=== PATIENT | female | born 1965 | race Caucasian/White ===

== ENCOUNTER 2023-11-16 13:46 | Outpatient (OUT) | payer MEDICARE, SELFPAY ==
--- NOTE | 2023-11-16 | CONS_ITS ---
CONSULTATION DATE: 11/16/2023 TO: Rosana Orourke M.D. CHIEF COMPLAINT: Includes severe left lower back pain, left hip pain. HISTORY OF PRESENT ILLNESS: Review of systems, past medical/surgical history were obtained and documented on the health questionnaire and is available upon request. She is a 58-year-old female, reports having 3-7/10 pain in the above mentioned areas, described as a sharp pain, increased with activities such as standing and walking and performing transitioning maneuvers. She feels most comfortable in the semi-recumbent position. Denies any change in bowel and bladder habits or new sensorimotor changes in the lower extremities. She has undergone activity modification and has been in a home exercise program for at least the last six weeks. She reports she has this pain again for at least the last one year. CURRENT MEDICATION: She has been using THC in the form of gummies. She has been Tylenol for her current pain symptoms, and she reports that she is intolerant to nonsteroidal agents. Her current KERRI is 32%. EXAM: Her examination is notable for patient having no clinical radiculopathy or myelopathy involving the lower extremities. Patient did have severe pain with lumbar facet joint loading maneuvers on the left side from L4-S1, with associated myofascial spasm of the lumbar paravertebral muscles as well. IMPRESSION: Our impression is patient with chronic pain secondary to lumbosacral spondylosis with facet loading pain clinically, on the left side at L4-5, L5-S1. RECOMMENDATIONS: I have recommended she start aquatic therapy. I have placed her on baclofen 10 mg pills, half to one b.i.d. Obtain lumbar spine films, PA and lateral views, and to proceed with a diagnostic left sided L4-5, L5-S1 medial branch block. As part of providing excellent, safe, comprehensive care, the following was completed at our patient's visit: 1. A medication reconciliation and review to ensure accurate knowledge of current/active medications, including asking our patients to inform us about any [id number] medications or herbal remedies/nutritional supplements/alternative remedies. 2. A review to specifically ensure our patients have had annual screening for: elevated body mass index (BMI, see intake chart for exact total), tobacco use, screening for depression, and screening for unhealthy alcohol use. When screening is concerning, patients are provided with education and the specific recommendation to discuss the concerning health issue and treatment options with their primary care provider. RAZAD
--- NOTE | 2023-11-16 15:11 | XR_ITS ---
The [address] [address] Patient Name: CLAUDIO REDD MRN: [id number] date: 1965 Sex: F Assigned Patient Location: PM Current Patient Location: Accession/Order Number: [id number] Exam Date: 11/16/2023 15:15 Report Date: 11/17/2023 07:12 At the request of: PARTHA BAY Procedure: XR lumbar spine 2-3V EXAMINATION: XR lumbar spine 2-3V HISTORY: low back pain COMPARISON: No relevant comparison available. 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 7 mm retrolisthesis of L4 in relation L5. Moderate to severe diffuse degenerative spondylosis and facet osteoarthropathy. DISC SPACES: Moderate to severe multilevel disc space narrowing. PARASPINOUS: Negative. No paraspinous abnormality is seen. OTHER: Negative. XR/XR lumbar spine 2-3V IMPRESSION: 7 mm retrolisthesis of L4. Severe degenerative changes with rotatory dextroscoliosis Electronically authenticated by: ODESSA IBARRA Date: 11/17/2023 07:12
== END 2023-11-16 13:47 | disposition home or self-care (01) ==
LOC: PM 13:47
PROVIDERS: PCP Family Medicine; Visit Provider Anesthesiology Pain Medicine
DX: M47.816 Spondylosis without myelopathy or radiculopathy, lumbar region (principal); M25.552 Pain in left hip; M51.36 Other intervertebral disc degeneration, lumbar region
CPT/HCPCS: 72100; G0463

== ENCOUNTER 2023-12-21 07:16 | Day surgery (SDC) | payer MEDICARE, SELFPAY ==
--- OUTSIDE RECORDS SUMMARY | 2023-12-21 07:19 | XMS_ITS | CCD ---
Author Organization [facility] Care Team Providers Care Stenographer Secretary Name Role Phone Rosana Orourke Unavailable ROSANA OROURKE Admitting Unavailable ROSANA OROURKE Attending Unavailable ROSANA OROURKE Primary Care Unavailable ROSANA OROURKE Consulting Unavailable ROSANA OROURKE Referring Unavailable ROSANA OROURKE Primary Care Unavailable ROSANA OROURKE Referring Unavailable ROSANA OROURKE Primary Care Unavailable Allergies Allergy Classification Reported Allergen(s) Allergy Type Date of Onset Reaction(s) Facility (6 sources) Morphine Drug Allergy Unknown Skoovy Other Medications Current Medications Medication Drug Class(es) Dates Sig (Normalized) Sig (Original) Ascorbic Acid (1 source) Vitamin C Start: 11-01-2023 take 1 tablet by mouth once daily Ascorbic Acid (Vitamin C) Active 1 TAB PO Daily November 01, 2023 12:00am FreeTextSi tablet Orally Once a day; Note: Source Status: Taking; Provider: Haven Wayne ( ) Cholecalciferol (1 source) Vitamin D Start: 11-01-2023 take 10 ug by mouth once daily Cholecalciferol (Vitamin D3) Active 10 MCG PO Daily November 01, 2023 12:00am Claritin-D 24 Hour 10-240 MG (6 sources) take 10-240 mg by mouth once daily as needed Claritin-D 24 Hour 10-240 MG 1 tablet as needed Orally Once a day for 30 days Active 24 hr loratadine 10 mg / pseudoephedrine sulfate 240 mg extended release oral tablet (1 source) alpha-Adrenergi c Agonist Start: 11-01-2023 take 1 tablet by mouth once daily Loratadine-Pseudoeph edrine Active 1 TAB PO Daily November 01, 2023 12:00am FreeTextSig: take 1 tablet by mouth once daily; Note: Source Status: Refill; Refills: 0; Qty: 30 Tablet; Provider: Haven Mann melatonin 1 mg oral tablet (7 sources) Start: 11-01-2023 take 1 mg by mouth once daily at bedtime Melatonin Active 1 MG PO Daily at bedtime November 01, 2023 12:00am Melatonin 1 MG 1 0mg. gummie Orally 2 at HS Active Tens Unit Electrodes (2 sources) Start: 11-02-2023 Tens Unit Elec trodes Active 0 .Route 1 November 02, 2023 2:24pm As directed Start: 11-02-2023 End: 11-02-2023 Tens Unit Electrodes Discont inued 0 .Route 1 November 02, 2023 12:00am November 02, 2023 2:25pm As directed Vitamin C 1000 MG (6 sources) take 1 tablet by mouth once daily Vitamin C 1000 MG 1 tablet Orally Once a day Active Vitamin D3 Complete - (6 sources) Vitamin D3 Compl ete - as directed Orally Active zinc gluconate 50 mg oral tablet (7 sources) Start: 11-01-2023 take 1 tablet by mouth once daily Zinc Gluconate Active 1 TAB PO Daily November 01, 2023 12:00am FreeTextSi tablet Orally Once a day; Note: Source Status: Taking; Provider: Haven Wayne ( ) take 1 tablet by molly th every twenty-four hours Zinc 50 MG 1 tablet Orally Once a day Active Completed/Discontinued Medications Medication Drug Class(es) Dates Sig (Normalized) Sig (Original) sertraline 25 mg oral tablet (3 sources) Serotonin Reuptake Inhibitor Start: 11-01-2023 End: 11-02-2023 take 1 tablet by mouth once daily Sertraline Discontinued 25 MG PO Daily November 01, 2023 12:00am November 02, 2023 1:50pm FreeTextSig: take 1 tablet by mouth once daily; Note: Source Status: Start; Refills: 3; Qty: 30 Tablet; Provider: Haven Wayne ( ) Start: 01-07-2023 take 1 tablet by molly th once daily Sertraline HCl 25 MG 1 tablet Orally Once a day for 30 days Dec, Active traZODone hydrochloride 50 mg oral tablet (3 sources) Serotonin Reuptake Inhibitor Start: 11-01-2023 End: 11-02-2023 take 1 tablet by mouth once daily at bedtime Trazodone Discontinued 50 MG PO Daily at bedtime November 01, 2023 12:00am November 02, 2023 1:50pm FreeTextSig: take 1 tablet by mouth at bedtime if needed; Note: Source Status: Refill; Refills: 2; Qty: 30 Tablet; Provider: Haven Mann Start: 01-07-2023 take 1 tablet by molly th every twenty-four hours traZODone HCl 50 MG 1 tablet at bedtime as needed Orally Once a day for 30 days Dec, Active Problems Problem Classification Problem Date Documented Da te Episodic/Chronic Anxiety disorders (3 sources) Anxiety; Translations: [Anxiety disorder, unspecified] Chronic Miscellaneous mental health disorders (3 sources) Primary insomnia; Translations: [Primary insomnia] Chronic Osteoarthritis (6 sources) Arthropathy of left hip joint; Translations: [Unilateral primary osteoarthritis, left hip] Chronic Other acquired deformities (6 sources) Scoliosis deformity of spine; Translations: [Scoliosis, unspecified] Chronic Other acquired deformities (6 sources) Acquired scoliosis; Translations: [Scoliosis, unspecified] Chronic Other bone disease and musculoskeletal deformities (6 sources) Idiopathic scoliosis AND/OR kyphoscoliosis; Translations: [Other idiopathic scoliosis, site unspecified] Chronic Other injuries and conditions due to external causes (1 source) Contusion; Translations: [Other injury of unspecified body region, initial encounter] 11-02-2023 Episodic Other injuries and conditions due to external causes (2 sources) Other injury of unspecified body region, initial encounter; Translations: [Contusion of unspecified site] Onset: 11-11-2023 11-02-2023 Episodic Other nervous system disorders (6 sources) Neuropathy; Translations: [Polyneuropathy, unspecified] Chronic Other non-traumatic joint disorders (6 sources) Arthralgia of the pelvic region and thigh; Translations: [Pain in left hip] Episodic Other screening for suspected conditions (not mental disorders or infectious disease) (5 sources) Encounter for screening mammogram for malignant neoplasm of breast; Translations: [Encounter for screening for malignant neoplasm of colon] Onset: 11-11-2023 Episodic Other upper respiratory disease (6 sources) Allergic rhinitis due to pollen; Translations: [Allergic rhinitis due to pollen] Chronic Other upper respiratory disease (1 source) Allergic rhinitis due to pollen Chronic Spondylosis; intervertebral disc disorders; other back problems (20 sources) Degeneration of lumbar intervertebral disc; Translations: [Other intervertebral disc degeneration, lumbar region] Chronic Spondylosis; intervertebral disc disorders; other back problems (10 sources) Low back pain; Translations: [Radiculopathy, lumbosacral region] 11-02-2023 Episodic Results Test Name Value Interpretation Reference Range Facil ity BASIC METABOLIC PANLon 11-10 Anion gap [Moles/Vol] 6 mmol/L Normal 5-15 [facility] Comment on above: Performed By: #### C BCA, BMP #### [facility] ([id number]) [address] [place] [address] Calcium [Mass/Vol] 9.7 mg/dL Normal 8.5-10.5 [facility] Comment on above: Performed By: #### C BCA, BMP #### [facility] ([id number]) [address], [facility] [address] [place] [address] Chloride [Moles/Vol] 102 mmol/L Normal 98-109 [facility] Comment on above: Performed By: #### C BCA, BMP #### [facility] ([id number]) [address] [place] [address] CO2 [Moles/Vol] 32 mmol/L Normal 22-32 [facility] Comment on above: Performed By: #### C BCA, BMP #### [facility] ([id number]) [address] [place] [address] Creatinine [Mass/Vol] 0.63 mg/dL Normal 0.40-1.00 [facility] Comment on above: Result Comment: METH OD TRACEABLE TO IDMS STANDARD Performed By: #### C BCA, BMP #### [facility] ([id number]) [address] [facility] [address] [place] [address] eGFR (CKD-EPI) NON-RACE DEPENDENT >90 Normal >59 [facility] Comment on above: Result Comment: Reported eGFR is based on the CKD-EPI 2020 equation that does not use a race coefficient. Performed By: #### C MIGUEL, BMP #### [facility] ([id number]) [address], [address] [place] [address] Glucose [Mass/Vol] 128 mg/dL High 65-99 [facility] Comment on above: Performed By: #### C MIGUEL, BMP #### [facility] ([id number]) [address], [address] [place] [address] Potassium [Moles/Vol] 4.3 mmol/L Normal 3.5-5.0 [facility] Comment on above: Performed By: #### C MIGUEL, BMP #### [facility] ([id number]) [address], [address] [place] [address] Sodium [Moles/Vol] 140 mmol/L Normal 134-146 [facility] Comment on above: Performed By: #### C MIGUEL, BMP #### [facility] ([id number]) [address], [address] [place] [address] Urea nitrogen [Mass/Vol] 9 mg/dL Normal 5-23 [facility] Comment on above: Performed By: #### C MIGUEL, BMP #### [facility] ([id number]) [address], [address] [place] [address] CBC AND AUTO DIFFon 11-11-19 24 ABSOLUTE BASOPHIL 0.1 X10E9/L Normal 0.0-0.2 [facility] Comment on above: Performed By: #### C BCA, BMP #### [facility] ([id number]) [address], [address] [place] [address] ABSOLUTE NEUTROPHIL 5.1 X10E9/L Normal 1.5-6.6 [facility] Comment on above: Performed By: #### C MIGUEL, BMP #### [facility] ([id number]) [address], [address] [place] [address] Basophils/100 WBC (Bld) 0.5 % Normal [facility] Comment on above: Performed By: #### C MIGUEL, BMP #### [facility] ([id number]) [address] [facility] [facility] [address] [place] [address] Eosinophils (Bld) [#/Vol] 0.3 10*3/uL Normal 0.0-0.4 [facility] Comment on above: Performed By: #### C MIGUEL, BMP #### [facility] ([id number]) [address] [place] [address] Eosinophils/100 WBC (Bld) 2.7 % Normal [facility] Comment on above: Performed By: #### C MIGUEL, BMP #### [facility] ([id number]) [address], [address] [place] [address] Erythrocyte distribution width (RBC) [Ratio] 13.7 % Normal 11.5-15.0 [facility] Comment on above: Performed By: #### C MIGUEL, BMP #### [facility] ([id number]) [address] [facility] [address] [place] [address] Hematocrit (Bld) [Volume fraction] 40.6 % Normal 35-47 [facility] Comment on above: Performed By: #### C MIGUEL, BMP #### [facility] ([id number]) [address] [facility] [facility] [place] [address] Hemoglobin (Bld) [Mass/Vol] 13.7 g/dL Normal 11.7-15.5 [facility] Comment on above: Performed By: #### C MIGUEL, BMP #### [facility] ([id number]) [address] [facility] [address] [place] [address] Lymphocytes (Bld) [#/Vol] 3.8 10*3/uL High 1.0-3.5 [facility] Comment on above: Performed By: #### C BCA, BMP #### [facility] ([id number]) [address] [place] [address] Lymphocytes/100 WBC (Bld) 37.9 % Normal [facility] Comment on above: Performed By: #### C BCA, BMP #### [facility] ([id number]) [address], [address] [place] [address] MCH (RBC) [Entitic mass] 31.1 pg Normal 27-34 [facility] Comment on above: Performed By: #### C BCA, BMP #### [facility] ([id number]) [address], [address] [place] [address] MCHC (RBC) [Mass/Vol] 33.6 g/dL Normal 32-36 [facility] Comment on above: Performed By: #### C BCA, BMP #### [facility] ([id number]) [address], [address] [place] [address] MCV (RBC) [Entitic vol] 93 fL Normal 80-100 [facility] Comment on above: Performed By: #### C BCA, BMP #### [facility] ([id number]) [address], [address] [place] [address] Monocytes (Bld) [#/Vol] 0.8 10*3/uL Normal 0-0.9 [facility] Comment on above: Performed By: #### C BCA, BMP #### [facility] ([id number]) [address], [address] [place] [address] Monocytes/100 WBC (Bld) 8.0 % Normal [facility] Comment on above: Performed By: #### C BCA, BMP #### [facility] ([id number]) [address], [address] [place] [address] Neutrophils/100 WBC (Bld) 50.9 % Normal [facility] Comment on above: Performed By: #### Irene RIVERA, BMP #### [facility] ([id number]) [address], [facility] [address] [place] [address] Platelet mean volume (Bld) [Entitic vol] 7.9 fL Normal 7-12 [facility] Comment on above: Performed By: #### Irene RIVERA, BMP #### [facility] ([id number]) [address], [facility] [address] [place] [address] Platelets (Bld) [#/Vol] 304 10*3/uL Normal 150-450 [facility] Comment on above: Performed By: #### Irene RIVERA, BMP #### [facility] ([id number]) [address], [facility] [address] [place] [address] RBC COUNT 4.39 X10E12/L Normal 3.80-5.20 [facility] Comment on above: Performed By: #### Irene RIVERA, BMP #### [facility] ([id number]) [address], [address] [address] WBC (Bld) [#/Vol] 10.0 10*3/uL Normal 4.0-11.0 [facility] Comment on above: Performed By: #### Irene RIVERA, BMP #### [facility] ([id number]) [address], [address] [place] [address] MAMM SCREENING BILATERAL W C student support services director 11-11-2023 MAMM SCREENING BILATERAL W CAD MAMM SCREENING BILATERAL W CAD EXAM: MAMM SCREENING BILATERAL W CAD, 11/11/2023 11:12 AM CLINICAL INDICATIONS: Screening, Visit for screening mammogram COMPARISON: 10/23/2022 and priors TECHNIQUE: Bilateral digital tomosynthesis MLO and CC views of the breasts were obtained, with creation of synthetic 2D views. Computer aided detection was utilized. FINDINGS: There are scattered areas of fibroglandular density. There are no suspicious masses, calcifications, or areas of architectural distortions. IMPRESSION: No mammographic evidence of malignancy. BI-RADS: BI-RADS 1 - Negative Recommendation: Routine screening mammogram in 1 year. Finalized by Jordan Lam MD on 11/11/2023 11:54 AM 1 b MAMM 1 YR Normal [facility] CBC AUTO DIFFon 10-23-2022 BASO # 0.0 103/ul Normal 0.0-0.1 [facility] Comment on above: Performed By: #### C BC #### [facility] [address] [address] [address] Jo Ann Rene Basophils/100 WBC (Bld) 0.4 % Normal 0.2-2.0 [facility] Comment on above: Performed By: #### C BC #### [facility] [address] [address] [address] Jo Ann Rene EO # 0.4 103/ul Normal 0.0-0.7 [facility] Comment on above: Performed By: #### C BC #### [facility] [address] [address] [address] Jo Ann Rene Eosinophils/100 WBC (Bld) 4.7 % Normal 0.9-7.0 [facility] Comment on above: Performed By: #### C BC #### [facility] [address] [address] [address] Jo Ann Rene Erythrocyte distribution width (RBC) [Ratio] 12.8 % Normal 11.0-15.0 [facility] Comment on above: Performed By: #### C BC #### [facility] [address] [address] [address] Jo Ann Rene Hematocrit (Bld) [Volume fraction] 42.6 % Normal 36.0-48.0 [facility] Comment on above: Performed By: #### C BC #### [facility] [address] [address] [address] Jo Ann Rene Hemoglobin (Bld) [Mass/Vol] 14.5 g/dL Normal 12.0-16.0 [facility] Comment on above: Performed By: #### C BC #### [facility] [address] [place] [address] Dr. Jo Ann Rene IG # 0.03 10e3/ul Normal 0.00-0.03 [facility] Comment on above: Performed By: #### C BC #### [facility] [address] [place] [address] Dr. Jo Ann Rene IG % 0.3 % Normal 0.0-0.5 [facility] Comment on above: Performed By: #### C BC #### [facility] [address] [place] [address] Dr. Jo Ann Rene LYMPH # 3.1 103/ul Normal 1.2-3.8 [facility] Comment on above: Performed By: #### C BC #### [facility] [address] [place] [address] Dr. Jo Ann Rene Lymphocytes/100 WBC (Bld) 34.1 % Normal 20.5-60.0 [facility] Comment on above: Performed By: #### C BC #### [facility] [address] [place] [address] Dr. Jo Ann Rene MANUAL DIFF REQ NO Normal [facility] Comment on above: Performed By: #### C BC #### [facility] [address] [place] [address] Dr. Jo Ann Rene MCH (RBC) [Entitic mass] 30.9 pg Normal 26.7-34.0 [facility] Comment on above: Performed By: #### C BC #### [facility] [address] [place] [address] Dr. Jo Ann Rene MCHC (RBC) [Mass/Vol] 34.0 g/dL Normal 29.9-35.2 [facility] Comment on above: Performed By: #### C BC #### [facility] [address] [place] [address] Dr. Jo Ann Rene MCV (RBC) [Entitic vol] 90.6 fL Normal 81.0-99.0 [facility] Comment on above: Performed By: #### C BC #### [facility] [address] [place] [address] Dr. Jo Ann Rene MONO # 0.8 103/ul Normal 0.3-0.8 [facility] Comment on above: Performed By: #### C BC #### [facility] [address] [place] [address] Dr. Jo Ann Rene Monocytes/100 WBC (Bld) 8.6 % Normal 1.7-12.0 [facility] Comment on above: Performed By: #### C BC #### [facility] [address] [place] [address] Dr. Jo Ann Rene NEUT # 4.7 103/ul Normal 1.4-6.5 [facility] Comment on above: Performed By: #### C BC #### [facility] [address] [place] [address] Dr. Jo Ann Rene Neutrophils/100 WBC (Bld) 51.9 % Normal 43.0-75.0 [facility] Comment on above: Performed By: #### C BC #### [facility] [address] [place] [address] Dr. Jo Ann Rene Platelet mean volume (Bld) [Entitic vol] 9.8 fL Normal 9.5-13.5 [facility] Comment on above: Performed By: #### C BC #### [facility] [address] [place] [address] Dr. Jo Ann Rene PLT 303 103/ul Normal 150-450 [facility] Comment on above: Performed By: #### C BC #### [facility] [address] [place] [address] Dr. Jo Ann Rene RBC 4.70 106/ul Normal 4.20-5.40 [facility] Comment on above: Performed By: #### C BC #### [facility] [address] [place] [address] Dr. Jo Ann Rene WBC 9.1 103/ul Normal 4.0-11.0 [facility] Comment on above: Performed By: #### C BC #### [facility] [address] [place] [address] Dr. Jo Ann Rene LIPID PROFILEon 10-23-2022 CHOL-HDL RATIO NORM SEE BELOW Normal [facility] Comment on above: Result Comment: 3.3 - 4.4 LOW RISK 4.4 - 7.1 AVERAGE RISK 7.1 - 11.0 MODERATE RISK >11.0 HIGH RISK Performed By: #### L IPID, BMP #### [facility] [address] [address] [address] Jo Ann Rene Cholesterol [Mass/Vol] 174 mg/dL Normal <=200 [facility] Comment on above: Performed By: #### L IPID, BMP #### [facility] [address] [address] [address] Jo Ann Rene Cholesterol in HDL [Mass/Vol] 57 mg/dL Normal 40-60 [facility] Comment on above: Performed By: #### L IPID, BMP #### [facility] [address] [address] [address] Jo Ann Rene Cholesterol in LDL [Mass/Vol] 109.2 mg/dL Normal [facility] Comment on above: Performed By: #### L IPID, BMP #### [facility] [address] [address] [address] Jo Ann Rene Cholesterol.total/C holesterol in HDL [Mass ratio] 3.1 {ratio} Normal [facility] Comment on above: Performed By: #### L IPID, BMP #### [facility] [address] [address] [address] Jo Ann Rene HDL NORMAL > or = 60 mg/dl - LOW CARDIOVASCULAR RISK <40 mg/dl - HIGH CARDIOVASCULAR RISK Normal [facility] Comment on above: Performed By: #### L IPID, BMP #### [facility] [address] [address] [address] Jo Ann Rene LDL CALC NORMAL SEE BELOW Normal [facility] Comment on above: Result Comment: <100 mg/dl OPTIMAL 100 - 129 mg/dl NEAR OR ABOVE OPTIMAL 130 - 159 mg/dl BORDERLINE HIGH 160 - 189 mg/dl HIGH >190 mg/dl VERY HIGH Performed By: #### L IPID, BMP #### [facility] [address] [address] [address] Jo Ann Rene Triglyceride [Mass/Vol] 39 mg/dL Normal <=150 [facility] Comment on above: Performed By: #### L IPID, BMP #### [facility] [address] [place] [address] Dr. Jo Ann Rene VLDL CALC 7.8 mg/dL Normal [facility] Comment on above: Performed By: #### L IPID, BMP #### [facility] [address] [place] [address] Dr. Jo Ann Rene PROF CHEM 8 (BAS METB)on Anion gap [Moles/Vol] 10.4 mmol/L Normal [facility] Comment on above: Performed By: #### L IPID, BMP #### [facility] [address] [place] [address] Dr. Jo Ann Rene Calcium [Mass/Vol] 9.7 mg/dL Normal 8.5-10.1 [facility] Comment on above: Performed By: #### L IPID, BMP #### [facility] [address] [place] [address] Dr. Jo Ann Rene Chloride [Moles/Vol] 104 mmol/L Normal 98-107 [facility] Comment on above: Performed By: #### L IPID, BMP #### [facility] [address] [place] [address] Dr. Jo Ann Rene CO2 [Moles/Vol] 31.1 mmol/L Normal 21.0-32.0 [facility] Comment on above: Performed By: #### L IPID, BMP #### [facility] [address] [place] [address] Dr. Jo Ann Rene Creatinine [Mass/Vol] 0.74 mg/dL Normal 0.55-1.02 [facility] Comment on above: Performed By: #### L IPID, BMP #### [facility] [address] [place] [address] Dr. Jo Ann Rene EGFR-AF BURUNDIAN >60 Normal >=60 [facility] Comment on above: Performed By: #### L IPID, BMP #### [facility] [address] [place] [address] Dr. Jo Ann Rene EGFR-NON AF B[place]UNDIAN >60 Normal >=60 [facility] Comment on above: Performed By: #### L IPID, BMP #### [facility] [address] [address] [address] Jo Ann Rene Glucose [Mass/Vol] 119 mg/dL Critically high 74-106 [facility] Comment on above: Performed By: #### L IPID, BMP #### [facility] [address] [address] [address] Jo Ann Rene Potassium [Moles/Vol] 4.5 mmol/L Normal 3.5-5.1 [facility] Comment on above: Performed By: #### L IPID, BMP #### [facility] [address] [place] [address] Dr. Jo Ann Rene Sodium [Moles/Vol] 141 mmol/L Normal 136-145 [facility] Comment on above: Performed By: #### L IPID, BMP #### [facility] [address] [address] [address] Jo Ann Rene Urea nitrogen [Mass/Vol] 7.0 mg/dL Normal 7.0-18.0 [facility] Comment on above: Performed By: #### L IPID, BMP #### [facility] [address] [place] [address] Dr. Jo Ann Rene Urea nitrogen/Creatinine [Mass ratio] 9.5 mg/mg Normal [facility] Comment on above: Performed By: #### L IPID, BMP #### [facility] [address] [place] [address] Dr. Jo Ann Rene Vital Signs Date Time Vital Sign Value Performing Clinician Facility 11-02-2023 13:42040 Body height 165.1 cm [facility] 11-02-2023 13:420400 Body mass index (BMI) [Ratio] 22.3 kg/m2 [facility] 11-02-2023 13:420400 Body weight 60.83 kg [facility] 11-02-2023 13:42-0400 Diastolic blood pressure 89 mm[Hg] [facility] 11-02-2023 13:42-0400 Heart rate 84 /min [facility] 11-02-2023 13:42-0400 Systolic blood pressure 143 mm[Hg] [facility] 01-07-2023 10:45-0400 Body height 165.1 cm Rosana Orourke Other [facility] 01-07-2023 10:45-0400 Body mass index (BMI) [Ratio] 21.96 kg/m2 Rosana Orourke Other [facility] 01-07-2023 10:45-0400 Body weight 59.88 kg Rosana Orourke Other [facility] 01-07-2023 10:45-0400 Diastolic blood pressure 74 mm[Hg] Rosana Orourke Other [facility] 01-07-2023 10:45-0400 SaO2% (BldA) [Mass fraction] 97 % Rosana Orourke Other [facility] 01-07-2023 10:45-0400 Systolic blood pressure 118 mm[Hg] Rosana Orourke Other [facility] 10-19-2022 12:30-0400 Body height 165.1 cm Rosana Orourke Other [facility] 10-19-2022 12:30-0400 Body mass index (BMI) [Ratio] 24.46 kg/m2 Rosana Orourke Other [facility] 10-19-2022 12:30-0400 Body weight 66.68 kg Rosana Orourke Other [facility] Other 10-19-2022 12:30-0400 Diastolic blood pressure 80 mm[Hg] Rosana Orourke Other [facility] Other 10-19-2022 12:30-0400 SaO2% (BldA) [Mass fraction] 97 % Rosana Orourke Other [facility] Other 10-19-2022 12:30-0400 Systolic blood pressure 132 mm[Hg] Rosana Orourke Other [facility] Other Encounters Encounter Date Encounter Type Care Provider Facility Start: 11-11-2023 End: 11-12-2023 ambulatory ROSANA OROURKE [facility] Start: 11-02-2023 Patient encounter status [facility] Start: 11-02-2023 End: 11-02-[address] [facility] Work Phone: Start: 11-02-2023 End: 11-02-2023 Encounter for general adult medical examination without abnormal findings [facility] Start: 11-02-2023 End: 11-02-2023 Patient encounter procedure [facility] Work Phone: Start: 02-04-2023 End: 02-04-2023 ambulatory Rosana Orourke Other [facility] Other Start: 02-04-2023 Telephone encounter Rosana Orourke [facility] Start: 01-07-2023 End: 01-07-2023 ambulatory Rosana Orourke Other [facility] Other Start: 01-07-2023 Office outpatient vi sit 15 minutes Rosana Orourke [facility] Start: 11-02-2022 End: 11-02-2022 ambulatory Rosana Orourke Other [facility] Other Start: 11-02-2022 Telephone encounter Rosana Orourke [facility] Start: 11-01-2022 Encounter for genera l adult medical examination without abnormal findings ROSANA OROURKE [facility] Start: 10-26-2022 End: 10-26-2022 ambulatory Rosana Orourke Other [facility] Other Start: 10-26-2022 Telephone encounter Rosana Haven [facility] Start: 10-23-2022 Telephone encounter Rosana Orourke [facility] Start: 10-23-2022 End: 10-24-2022 ambulatory ROSANA Mackenzie [facility] Other Start: 10-23-2022 End: 10-24-2022 Encounter for general adult medical examination without abnormal findings ROSANA Mann [facility] Facility:[facility] Start: 10-19-2022 End: 10-19-2022 ambulatory Rosana Orourke Other [facility] Other Start: 10-19-2022 Encounter for genera l adult medical examination without abnormal findings Rosana Haven [facility] Start: 10-19-2022 Initial preventive medicine new patient 40-64yrs Rosana Haven [facility] Plan of Treatment Date Care Activity Detail Author Start: 11-02-2023 Patient referral [facility] Work Phone: MG Breast - bilatera l Screening [facility] Patient referral [facility] Work Phone: [facility] Payers Date Payer Category Payer Unknown [id number] 1965 Unknown [id number] 1965 Unknown [id number] 1961 Medicare [id number] Medicare [id number] Social History Date Type Detail Facility Unknown if ever smoked [facility] Other Sex Assigned At Sex Assigned At Bir [facility] Other Start: 11-02-2023 Tobacco smoking status NHIS Smoker (finding) [facility] Start: 1965 Sex Assigned At Female F [facility] Discharge instructions 11-02-2023 Note Date & Type Note Facility 11-02-2023 Hospital Discharg e instructions Ambulatory OrdersReferral to Pain Management Time Frame: 11/02/23, Location: None Selected [facility] Work Phone: Evaluation note 01-07-2023 Note Date & Type Note Facility 01-07-2023 Evaluation note Encounter Date Diagnosis Assessment Notes Dec, Anxiety (ICD-10 - F41.9) Recommended counseling when able. Right now her schedule is difficult. Call if medication does not help. Dec, Primary insomnia (ICD-10 - F51.01) Discussed stressors. Problems with constant worrying with husbands serious medical issues. [facility] Other Evaluation note 10-19-2022 Note Date & Type Note Facility 10-19-2022 Evaluation note Encounter Date Diagnosis Assessment Notes Oct, Wellness examination (ICD-10 - Z00.00) Also gave the SHARON form Oct, Seasonal allergic rhinitis due to pollen (ICD-10 - J30.1) Pt states symptoms are controlled on Claritin. Had testing 10+ years ago and did serum treatment for 2 years. Oct, Screening mammogram for breast cancer (ICD-10 - Z12.31) Pt will call to schedule. Oct, Screening for colon cancer (ICD-10 - Z12.11) agrees to Colog[facility]. Last was in 2019. [facility] Other Evaluation note Note Date & Type Note Facility Evaluation note No Information [employer] Other Evaluation note Note Date & Type Note Facility Evaluation note Diagnosis Onset Date Bruising acute Right lumbar radiculopathy a cute Right sciatic nerve pain acu te Screening mammogram for breast cancer acute Wellness examination acute [facility] Work Phone: History general Narrative - Reported Note Date & Type Note Facility History general Narrative - Reported Type Medical History none at this time Medical History Scoliosis Medical History Disc displacement, lumbar Medical History Degenerative disc disease, lumba r Medical History Arthropathy of left hip Medical History Lumbar back pain wit h radiculopathy affecting left lower extremity Medical History Scoliosis (and kypho scoliosis), idiopathic Medical History Inflammation of both sacroiliac joints Medical History Neuropathy Surgical History Hysterectomy 1998 Surgical History tubal 1986 Hospitalization History See Sx Hx [facility] Other Summary Purpose Family History No Family History Records Found Relationship Condition Age at Onset Recorded Date/T adal father Heart disease Unknown Unknown Not Specified Hypertension Unknown Advance Directives No Advanced Directives Records Found Advance Directive Response Recorded Date/ Time Advance Directives No October 25 10:44am Chief Complaint and Reason for Visit Chief Complaint wellness Reason for Visit Bruising Right lumbar radiculopathy Right sciatic nerve pain Screening mammogram for breast cancer Wellness examination Additional Source Comments REASON FOR VISIT (unrecogniz ed section and content) wellnesslabsdiagnosis codesc ologuard negANXIETY TROUBLE EATING AND SLEEPINGrefill INFORMATION SOURCE (unrecogn ized section and content) DATE CREATED AUTHOR 11/01/2022 [facility] DATE CREATED AUTHOR AUTHOR'S ORGANIZ ATION 11/12/2023 [facility] Care Teams (unrecognized sec tion and content) Team Status: Active Member Role Status Dates Rosana Orourke MD Primary Care Provider Active Team Status: Inactive Member Role Status Dates Rosana Orourke MD Primary Care Provide r, Attending Provider Active Start: November 02, 2023 End: November 02, 2023 Goals (unrecognized section and content) Goals may be documented in a n alternate section FOR RECORDS PERTAINING TO PATIENTS WHO ARE OR HAVE BEEN ENROLLED IN A CHEMICAL DEPENDENCY/SUBSTANCEABUSE PROGRAM, SOME INFORMATION MAY BE OMITTED. This clinical summary was aggregated from multiple sources. Caution should be exercised in using it in the provision of clinical care. This summary normalizes information from multiple sources, and as a consequence, information in this document may materially change the coding, format and clinical context of patient data. In addition, data may be omitted in some cases. CLINICAL DECISIONS SHOULD BE BASED ON THE PRIMARY CLINICAL RECORDS. [employer] provides no warranty or guarantee of the accuracy or completeness of information in this document.
[2023-12-21 07:40] VITALS: BP 120/77; PULSE 88; TEMP 36.2; O2SAT 97
[2023-12-21] MEDS: BUPIVACAINE HCL 0.25% PF 25 MG/10 ML VIAL 4 ML INJ (08:31)
[2023-12-21 08:33] VITALS: BP 129/80; BP 133/80; PULSE 84; PULSE 86; O2SAT 96; O2SAT 98
--- NOTE | 2023-12-21 09:57 | W.PM.PROCNOT ---
Date of procedure: 12/21/23 Pre-op diagnosis: lumbar spondylosis Post-op diagnosis: same as pre-op Procedure: Left lumbar 4-5, 5-S1 medial branch block Under fluoroscopic guidance Solution injected: 2millilitersMarcaine 0.25% Anesthesia :none Immediate complications none Time out process compliant After informed consent obtained from the patient placed in the Prone proposition . area was prepped and draped in a sterile fashion using Cloraprep .25 gauge spinal needle inserted over each of the above mentioned target areas . [place] were directed towards the target under fluoroscopic guidance . after encountering each of the targets , no indication of intravascular intraneuronal or intrathecal needle tip placement. Then 0 .5 to 1 Milliliter was injected at each level. [place] removed postoperatively. patient transferred to recovery in stable condition to be discharged home after meeting criteria Anesthesia: Local Surgeon: Leigh Ann Montanez Condition: stable Disposition: PACU
== END 2023-12-21 08:38 | disposition home or self-care (01) ==
PROVIDERS: PCP Family Medicine; Visit Provider Anesthesiology Pain Medicine
DX: M47.816 Spondylosis without myelopathy or radiculopathy, lumbar region (principal)
CPT/HCPCS: 64493; 64494

== ENCOUNTER 2023-12-29 13:35 | Outpatient (OUT) | payer MEDICARE, SELFPAY ==
--- NOTE | 2023-12-29 14:02 | P.CN_ITS ---
Consult Note: HPI Data of Consult Patient: known to practice within the last 3 years Requesting Physician: Trena Ortega NP Primary Care Provider: Rosana Orourke MD Consult Narrative Narrative: Vida Dee a pleasant 58 year old female presents for evaluation and management of chronic low back pain. Patient has had chronic low back pain secondary to facet arthropathy present greater than 6 months, unresponsive to HEP greater than 6 weeks tylenol baclofen and THC gummies. Patient recently underwent left L4/5 L5/S1 facet medial branch block #1 with >80% improvement in left sided axial low back pain immediately following and hours after the injection. Patient reporting low back pain moderate to severe bilaterally, would like to discuss right sided low back pain. Pain today 4/10 increasing to 10/10 with standing and walking, as well as twisting. cc:: CC: Trena Ortega NP Review of Systems ROS Status of ROS 10 or more systems reviewed and unremark able except as noted in history and below Musculoskeletal Reports: back pain PFSH PFSH Medical History (Updated 12/29/23 @ 14:12 by Trena Ortega NP) Osteoarthritis ?M19.90 - Unspecified osteoarthritis, unspecified site (ICD-10) Surgical History History of tubal ligation ?Z98.51 - Tubal ligation status (ICD-10) History of hysterectomy ?Z90.710 - Acquired absence of both cervix and uterus (ICD-10) Meds Home Medications and Allergies Home Medications ?Medication ?Instructions ?Recorded ?Confirmed ?Type baclofen 10 mg tablet 10 mg PO BID 11/18/23 12/21/23 History cholecalciferol (vitamin D3) 125 125 mcg PO DAILY 11/18/23 12/21/23 History mcg (5,000 unit) tablet (Vitamin D3) diphenhydramine HCl 25 mg capsule 25 mg PO Q8H PRN allergy symptoms 11/18/23 12/21/23 History (Benadryl) loratadine-pseudoephedrine ER 10 1 tab PO DAILY 11/18/23 12/21/23 History mg-240 mg tablet,extended [id number] (Claritin-D 24 Hour) melatonin 10 mg capsule 10 mg PO DAILY 11/18/23 12/21/23 History Allergies Allergy/AdvReac Type Severity Reaction Status Date / Time No Known Drug Allergies Allergy Verified 12/21/23 07:41 Exam Constitutional Documenting provider has reviewed patient's vital signs: yes Common normals: no apparent distress, oriented x3, healthy appearing, alert and well nourished General appearance: cooperative HENMT Common normals: normocephalic, hearing grossly normal bilaterally and moist oral mucous membranes Head and scalp: normocephalic Eye Common normals: PERRL Pupil: PERRL Neck & C-Spine Common normals: full ROM General: normal visual inspection Chest Common normals: inspection of chest normal Respiratory Common normals: normal respiratory effort, no retractions and no use of accessory muscles Back & Pelvis Lumbar spine/lower back: ROM limited, pain with ROM and straight leg raise negative bilaterally Sacroiliac joints: SI joints normal Other: bilateral facet loading tenderness from L3-S1 facets no radiculopathy, sensation intact BLE, strength 5/5 in BLE Extremity Common normals: normal to inspection and full ROM Neuro Common normals: oriented x3, CN's II-XII intact bilaterally, moves all extremities, no focal motor deficits, no sensory deficits noted and deep tendon reflexes 2+ bilaterally Sensorium/orientation: alert Motor exam: strength 5/5 throughout and no movement abnormalities noted Psych Common normals: mental status grossly normal, thought process normal, cooperative, affect normal, speech normal and activity/motor behavior normal Speech: normal speech Thought process: normal thought process Results Additional Findings Additional findings: If on a controlled substance or opioids, I have checked an [place] report on this patient and there are no aberrancies noted in the prescribing history.??If on a controlled substance or opioid a drug screen was completed and reviewed within the last year, and if there has not been a drug screen completed we ordered one today to monitor higher risk, state monitored pain medication use. As part of providing excellent, safe, comprehensive care, the following was completed at our patient's visit: 1. A medication reconciliation and review to ensure accurate knowledge of current/active medications, including asking our patients to inform us about any [id number] medications or herbal remedies/nutritional supplements/alternative remedies. 2. A review to specifically ensure our patients have had annual screening for screening for depression, screening for tobacco use, and screening for unhealthy alcohol use. For concerning screenings had a discussion with the patient, provided patient education, and recommended follow-up with primary care provider when appropriate. If patient noted with a risk of falling, they received education on strength, gait, and balance training to prevent future risk of falling. Assessment and Plan Assessment and Plan (1) Lumbar spondylosis: Plan Right L4-5 L5-S1 facet medial branch block under fluoroscopy, f/u after injection plan for bilateral L4-5 L5-S1 MBB #2 working towards RFA if above listed procedure provides >80% improvement in pain and functional ability continue current medications
== END 2023-12-29 13:36 | disposition home or self-care (01) ==
LOC: PM 13:36
PROVIDERS: PCP Family Medicine; Visit Provider Nurse Practitioner
DX: M47.816 Spondylosis without myelopathy or radiculopathy, lumbar region (principal)
CPT/HCPCS: G0463

== ENCOUNTER 2024-02-01 06:39 | Day surgery (SDC) | payer MEDICARE, SELFPAY ==
--- OUTSIDE RECORDS SUMMARY | 2024-02-01 06:41 | XMS_ITS | CCD ---
Author Organization [facility] Care Team Providers Care Cognos Administrator Name Role Phone Rosana Orourke Unavailable ROSANA OROURKE Admitting Unavailable ROSANA OROURKE Attending Unavailable ROSANA OROURKE Primary Care Unavailable ROSANA OROURKE Consulting Unavailable ROSANA OROURKE Referring Unavailable ROSANA OROURKE Primary Care Unavailable ROSANA OROURKE Referring Unavailable ROSANA OROURKE Primary Care Unavailable Allergies Allergy Classification Reported Allergen(s) Allergy Type Date of Onset Reaction(s) Facility (6 sources) Morphine Drug Allergy Unknown [facility] Other Medications Current Medications Medication Drug Class(es) [...] Mann Start: 01-07-2023 take 1 tablet by molyl th every twenty-four hours traZODone HCl 50 [...] Anion gap [Moles/Vol] 6 mmol/L Normal 5-15 [facility] Comment on above: Performed By: #### C BCA, BMP #### [facility] ([id number]) [address] [place] [address] Calcium [Mass/Vol] 9.7 mg/dL Normal 8.5-10.5 [facility] Comment on above: Performed By: #### C BCA, BMP #### [facility] ([id number]) [address] [facility] [address] [place] [address] Chloride [Moles/Vol] 102 mmol/L Normal 98-109 [facility] Comment on above: Performed By: #### C BCA, BMP #### [facility] ([id number]) [address] [place] [address] CO2 [Moles/Vol] 32 mmol/L Normal 22-32 [facility] Comment on above: Performed By: #### C BCA, BMP #### [facility] ([id number]) [address] [place] [address] Creatinine [Mass/Vol] 0.63 mg/dL Normal 0.40-1.00 [facility] Comment on above: Result Comment: METH OD TRACEABLE TO IDMS STANDARD Performed By: #### C BCA, BMP #### [facility] ([id number]) [address] [facility] [facility] [place] [address] eGFR (CKD-EPI) NON-RACE DEPENDENT >90 Normal >59 [facility] Comment on above: Result Comment: Reported eGFR is based on the CKD-EPI 2020 equation that does not use a race coefficient. Performed By: #### C MIGUEL, BMP #### [facility] ([id number]) [address] [place] [address] Glucose [Mass/Vol] 128 mg/dL High 65-99 [facility] Comment on above: Performed By: #### C MIGUEL, BMP #### [facility] ([id number]) [address] [address] [place] [address] Potassium [Moles/Vol] 4.3 mmol/L Normal 3.5-5.0 [facility] Comment on above: Performed By: #### C MIGUEL, BMP #### [facility] ([id number]) [address] [place] [address] Sodium [Moles/Vol] 140 mmol/L Normal 134-146 [facility] Comment on above: Performed By: #### C MIGUEL, BMP #### [facility] ([id number]) [address] [place] [address] Urea nitrogen [Mass/Vol] 9 mg/dL Normal 5-23 [facility] Comment on above: Performed By: #### C MIGUEL, BMP #### [facility] ([id number]) [address] [address] [place] [address] CBC AND AUTO DIFFon 11-11-19 24 ABSOLUTE BASOPHIL 0.1 X10E9/L Normal 0.0-0.2 [facility] Comment on above: Performed By: #### C BCA, BMP #### [facility] ([id number]) [address] [place] [address] ABSOLUTE NEUTROPHIL 5.1 X10E9/L Normal 1.5-6.6 [facility] Comment on above: Performed By: #### C MIGUEL, BMP #### [facility] ([id number]) [address] [place] [address] Basophils/100 WBC (Bld) 0.5 % Normal [facility] Comment on above: Performed By: #### C MIGUEL, BMP #### [facility] ([id number]) [address] [place] [address] Eosinophils (Bld) [#/Vol] 0.3 10*3/uL Normal 0.0-0.4 [facility] Comment on above: Performed By: #### C MIGUEL, BMP #### [facility] ([id number]) [address] [address] [place] [address] Eosinophils/100 WBC (Bld) 2.7 % Normal [facility] Comment on above: Performed By: #### C MIGUEL, BMP #### [facility] ([id number]) [address] [place] [address] Erythrocyte distribution width (RBC) [Ratio] 13.7 % Normal 11.5-15.0 [facility] Comment on above: Performed By: #### C MIGUEL, BMP #### [facility] ([id number]) [address] [address] [place] [address] Hematocrit (Bld) [Volume fraction] 40.6 % Normal 35-47 [facility] Comment on above: Performed By: #### C MIGUEL, BMP #### [facility] ([id number]) [address] [address] [place] [address] Hemoglobin (Bld) [Mass/Vol] 13.7 g/dL Normal 11.7-15.5 [facility] Comment on above: Performed By: #### C BCA, BMP #### [facility] ([id number]) [address] [place] [address] Lymphocytes (Bld) [#/Vol] 3.8 10*3/uL High 1.0-3.5 [facility] Comment on above: Performed By: #### C BCA, BMP #### [facility] ([id number]) [address] [place] [address] Lymphocytes/100 WBC (Bld) 37.9 % Normal [facility] Comment on above: Performed By: #### C BCA, BMP #### [facility] ([id number]) [address] [place] [address] MCH (RBC) [Entitic mass] 31.1 pg Normal 27-34 [facility] Comment on above: Performed By: #### C MIGUEL, BMP #### [facility] ([id number]) [address] [place] [address] MCHC (RBC) [Mass/Vol] 33.6 g/dL Normal 32-36 [facility] Comment on above: Performed By: #### C BCA, BMP #### [facility] ([id number]) [address] [place] [address] MCV (RBC) [Entitic vol] 93 fL Normal 80-100 [facility] Comment on above: Performed By: #### C BCA, BMP #### [facility] ([id number]) [address] [place] [address] Monocytes (Bld) [#/Vol] 0.8 10*3/uL Normal 0-0.9 [facility] Comment on above: Performed By: #### C BCA, BMP #### [facility] ([id number]) [address] [place] [address] Monocytes/100 WBC (Bld) 8.0 % Normal [facility] Comment on above: Performed By: #### C BCA, BMP #### [facility] ([id number]) [address] [place] [address] Neutrophils/100 WBC (Bld) 50.9 % Normal [facility] Comment on above: Performed By: #### Irene RIVERA, BMP #### [facility] ([id number]) [address] [facility] [address] [place] [address] Platelet mean volume (Bld) [Entitic vol] 7.9 fL Normal 7-12 [facility] Comment on above: Performed By: #### Irene RIVERA, BMP #### [facility] ([id number]) [address] [facility] [address] [place] [address] Platelets (Bld) [#/Vol] 304 10*3/uL Normal 150-450 [facility] Comment on above: Performed By: #### Irene RIVERA, BMP #### [facility] ([id number]) [address] [facility] [address] [place] [address] RBC COUNT 4.39 X10E12/L Normal 3.80-5.20 [facility] Comment on above: Performed By: #### Irene RIVERA, BMP #### [facility] ([id number]) [address] [address] WBC (Bld) [#/Vol] 10.0 10*3/uL Normal 4.0-11.0 [facility] Comment on above: Performed By: #### Irene RIVERA, BMP #### [facility] ([id number]) [address] [place] [address] MAMM SCREENING BILATERAL W C advice line rn 11-11-2023 MAMM SCREENING BILATERAL W CAD MAMM [...] AM 1 b MAMM 1 YR Normal [facility] CBC AUTO DIFFon 10-23-2022 BASO # 0.0 103/ul Normal 0.0-0.1 [facility] Comment on above: Performed By: #### C BC #### [facility] [address] [place] [address] Dr. Jo Ann Rene Basophils/100 WBC (Bld) 0.4 % Normal 0.2-2.0 [facility] Comment on above: Performed By: #### C BC #### [facility] [address] [place] [address] Dr. Jo Ann Rene EO # 0.4 103/ul Normal 0.0-0.7 [facility] Comment on above: Performed By: #### C BC #### [facility] [address] [place] [address] Dr. Jo Ann Rene Eosinophils/100 WBC (Bld) 4.7 % Normal 0.9-7.0 [facility] Comment on above: Performed By: #### C BC #### [facility] [address] [place] [address] Dr. Jo Ann Rene Erythrocyte distribution width (RBC) [Ratio] 12.8 % Normal 11.0-15.0 [facility] Comment on above: Performed By: #### C BC #### [facility] [address] [place] [address] Dr. Jo Ann Rene Hematocrit (Bld) [Volume fraction] 42.6 % Normal 36.0-48.0 [facility] Comment on above: Performed By: #### C BC #### [facility] [address] [place] [address] Dr. Jo Ann Rene Hemoglobin (Bld) [Mass/Vol] 14.5 g/dL Normal 12.0-16.0 [facility] Comment on above: Performed By: #### C BC #### [facility] [address] [place] [address] Dr. Jo Ann Rene IG # 0.03 10e3/ul Normal 0.00-0.03 [facility] Comment on above: Performed By: #### C BC #### [facility] [address] [place] [address] Dr. Jo Ann Rene IG % 0.3 % Normal 0.0-0.5 [facility] Comment on above: Performed By: #### C BC #### [facility] [address] [place] [address] Dr. Jo Ann Rene LYMPH # 3.1 103/ul Normal 1.2-3.8 [facility] Comment on above: Performed By: #### C BC #### [facility] [address] [place] [address] Dr. Jo Ann Rene Lymphocytes/100 WBC (Bld) 34.1 % Normal 20.5-60.0 [facility] Comment on above: Performed By: #### C BC #### [facility] [address] [place] [address] Dr. Jo Ann Rene MANUAL DIFF REQ NO Normal [facility] Comment on above: Performed By: #### C BC #### [facility] [address] [place] [address] Dr. Jo Ann Rene MCH (RBC) [Entitic mass] 30.9 pg Normal 26.7-34.0 [facility] Comment on above: Performed By: #### C BC #### [facility] [address] [place] [address] Dr. Jo Ann Rene MCHC (RBC) [Mass/Vol] 34.0 g/dL Normal 29.9-35.2 [facility] Comment on above: Performed By: #### C BC #### [facility] [address] [place] [address] Dr. Jo Ann Rene MCV (RBC) [Entitic vol] 90.6 fL Normal 81.0-99.0 [facility] Comment on above: Performed By: #### C BC #### [facility] [address] [place] [address] Dr. Jo Ann Rene MONO # 0.8 103/ul Normal 0.3-0.8 [facility] Comment on above: Performed By: #### C BC #### [facility] [address] [place] [address] Dr. Jo Ann Rene Monocytes/100 WBC (Bld) 8.6 % Normal 1.7-12.0 [facility] Comment on above: Performed By: #### C BC #### [facility] [address] [place] [address] Dr. Jo Ann Rene NEUT # 4.7 103/ul Normal 1.4-6.5 [facility] Comment on above: Performed By: #### C BC #### [facility] [address] [place] [address] Dr. Jo Ann Rene Neutrophils/100 WBC (Bld) 51.9 % Normal 43.0-75.0 [facility] Comment on above: Performed By: #### C BC #### [facility] [address] [place] [address] Dr. Jo Ann Rene Platelet mean volume (Bld) [Entitic vol] 9.8 fL Normal 9.5-13.5 [facility] Comment on above: Performed By: #### C BC #### [facility] [address] [place] [address] Dr. Jo Ann Rene PLT 303 103/ul Normal 150-450 [facility] Comment on above: Performed By: #### C BC #### [facility] [address] [place] [address] Dr. Jo Ann Rene RBC 4.70 106/ul Normal 4.20-5.40 [facility] Comment on above: Performed By: #### C BC #### [facility] [address] [place] [address] Dr. Jo Ann Rene WBC 9.1 103/ul Normal 4.0-11.0 [facility] Comment on above: Performed By: #### C BC #### [facility] [address] [place] [address] Dr. Jo Ann Rene LIPID PROFILEon 10-23-2022 CHOL-HDL RATIO NORM SEE BELOW Normal [facility] Comment on above: Result Comment: 3.3 - 4.4 LOW RISK 4.4 - 7.1 AVERAGE RISK 7.1 - 11.0 MODERATE RISK >11.0 HIGH RISK Performed By: #### L IPID, BMP #### [facility] [address] [address] [address] Jo Ann Rene Cholesterol [Mass/Vol] 174 mg/dL Normal <=200 [facility] Comment on above: Performed By: #### L IPID, BMP #### [facility] [address] [address] [address] Jo Ann Rene Cholesterol in HDL [Mass/Vol] 57 mg/dL Normal 40-60 [facility] Comment on above: Performed By: #### L IPID, BMP #### [facility] [address] [address] [address] Jo Ann Rene Cholesterol in LDL [Mass/Vol] 109.2 mg/dL Normal [facility] Comment on above: Performed By: #### L IPID, BMP #### [facility] [address] [address] [address] Jo Ann Rene Cholesterol.total/C holesterol in HDL [Mass ratio] 3.1 {ratio} Normal [facility] Comment on above: Performed By: #### L IPID, BMP #### [facility] [address] [address] [address] Jo Ann Rene HDL NORMAL > or = 60 mg/dl - LOW CARDIOVASCULAR RISK <40 mg/dl - HIGH CARDIOVASCULAR RISK Normal [facility] Comment on above: Performed By: #### L IPID, BMP #### [facility] [address] [address] [address] Jo Ann Rene LDL CALC NORMAL SEE BELOW Normal [facility] Comment on above: Result Comment: <100 mg/dl OPTIMAL 100 - 129 mg/dl NEAR OR ABOVE OPTIMAL 130 - 159 mg/dl BORDERLINE HIGH 160 - 189 mg/dl HIGH >190 mg/dl VERY HIGH Performed By: #### L IPID, BMP #### [facility] [address] [address] [address] Jo Ann Rene Triglyceride [Mass/Vol] 39 mg/dL Normal <=150 [facility] Comment on above: Performed By: #### L IPID, BMP #### [facility] [address] [place] [address] Dr. Jo Ann Rene VLDL CALC 7.8 mg/dL Normal [facility] Comment on above: Performed By: #### L IPID, BMP #### [facility] [address] [place] [address] Dr. Jo Ann Rene PROF CHEM 8 (BAS METB)on Anion gap [Moles/Vol] 10.4 mmol/L Normal [facility] Comment on above: Performed By: #### L IPID, BMP #### [facility] [address] [place] [address] Dr. Jo Ann Rene Calcium [Mass/Vol] 9.7 mg/dL Normal 8.5-10.1 [facility] Comment on above: Performed By: #### L IPID, BMP #### [facility] [address] [place] [address] Dr. Jo Ann Rene Chloride [Moles/Vol] 104 mmol/L Normal 98-107 [facility] Comment on above: Performed By: #### L IPID, BMP #### [facility] [address] [place] [address] Dr. Jo Ann Rene CO2 [Moles/Vol] 31.1 mmol/L Normal 21.0-32.0 [facility] Comment on above: Performed By: #### L IPID, BMP #### [facility] [address] [place] [address] Dr. Jo Ann Rene Creatinine [Mass/Vol] 0.74 mg/dL Normal 0.55-1.02 [facility] Comment on above: Performed By: #### L IPID, BMP #### [facility] [address] [place] [address] Dr. Jo Ann Rene EGFR-AF GAMBIAN >60 Normal >=60 [facility] Comment on above: Performed By: #### L IPID, BMP #### [facility] [address] [place] [address] Dr. Jo Ann Rene EGFR-NON AF GAMBIAN >60 Normal >=60 [facility] Comment on above: Performed By: #### L IPID, BMP #### [facility] [address] [address] [address] Jo Ann Rene Glucose [Mass/Vol] 119 mg/dL Critically high 74-106 [facility] Comment on above: Performed By: #### L IPID, BMP #### [facility] [address] [address] [address] Jo Ann Rene Potassium [Moles/Vol] 4.5 mmol/L Normal 3.5-5.1 [facility] Comment on above: Performed By: #### L IPID, BMP #### [facility] [address] [place] [address] Dr. Jo Ann Rene Sodium [Moles/Vol] 141 mmol/L Normal 136-145 [facility] Comment on above: Performed By: #### L IPID, BMP #### [facility] [address] [address] [address] Jo Ann Rene Urea nitrogen [Mass/Vol] 7.0 mg/dL Normal 7.0-18.0 [facility] Comment on above: Performed By: #### L IPID, BMP #### [facility] [address] [place] [address] Dr. Jo Ann Rene Urea nitrogen/Creatinine [Mass ratio] 9.5 mg/mg Normal [facility] Comment on above: Performed By: #### L IPID, BMP #### [facility] [address] [place] [address] Dr. Jo Ann Rene Vital Signs Date Time Vital Sign Value Performing Clinician Facility 11-02-2023 13:42-0400 Body height 165.1 cm [facility] 11-02-2023 13:42-0400 Body mass index (BMI) [Ratio] 22.3 kg/m2 [facility] 11-02-2023 13:420400 Body weight 60.83 kg [facility] 11-02-2023 13:42-0400 Diastolic blood pressure 89 mm[Hg] [facility] 11-02-2023 13:42-0400 Heart rate 84 /min [facility] 11-02-2023 13:42-0400 Systolic blood pressure 143 mm[Hg] [facility] 01-07-2023 10:45-0400 Body height 165.1 cm Rosana Orourke Other [facility] Other 01-07-2023 10:45-0400 Body mass index (BMI) [Ratio] 21.96 kg/m2 Rosana Orourke Other [facility] Other 01-07-2023 10:45-0400 Body weight 59.88 kg Rosana Orourke Other [facility] Other 01-07-2023 10:45-0400 Diastolic blood pressure 74 mm[Hg] Rosana Orourke Other [facility] Other 01-07-2023 10:45-0400 SaO2% (BldA) [Mass fraction] 97 % Rosana Orourke Other [facility] Other 01-07-2023 10:45-0400 Systolic blood pressure 118 mm[Hg] Rosana Orourke Other [facility] Other 10-19-2022 12:30-0400 Body height 165.1 cm Rosana Orourke Other [facility] Other 10-19-2022 12:30-0400 Body mass index (BMI) [Ratio] 24.46 kg/m2 Rosana Orourke Other [facility] Other 10-19-2022 12:30-0400 Body weight 66.68 kg Rosana Orourke Other [facility] Other 10-19-2022 12:30-0400 Diastolic blood pressure 80 mm[Hg] Rosana Orourke Other [facility] Other 10-19-2022 12:30-0400 SaO2% (BldA) [Mass fraction] 97 % Rosana Orourke Other [facility] Other 10-19-2022 12:30-0400 Systolic blood pressure 132 mm[Hg] Rosana Orourke Other [facility] Other Encounters Encounter Date Encounter Type Care Provider Facility Start: 11-11-2023 End: 11-12-2023 ambulatory ROSANA OROURKE [facility] Start: 11-02-2023 Patient encounter status [facility] Start: 11-02-2023 End: 11-02-2023 ambulatory [facility] Work Phone: Start: 11-02-2023 End: 11-02-2023 Encounter for general adult medical examination without abnormal findings [facility] Start: 11-02-2023 End: 11-02-2023 Patient encounter procedure [facility] Work Phone: Start: 02-04-2023 End: 02-04-2023 ambulatory Rosana Orourke Other [facility] Other Start: 02-04-2023 Telephone encounter Rosana Orourke [facility] Start: 01-07-2023 End: 01-07-2023 ambulatory Rosana Orourke Other [facility] Other Start: 01-07-2023 Office outpatient vi sit 15 minutes Rosana Orourke [facility] Start: 11-02-2022 End: 11-02-2022 ambulatory Rosana Orourke Other [facility] Other Start: 11-02-2022 Telephone encounter Rosana Orourke [facility] Start: 11-01-2022 Encounter for genera l adult medical examination without abnormal findings ROSANA OROURKE [facility] Start: 10-26-2022 End: 10-26-2022 ambulatory Rosana Oruorke Other [facility] Other Start: 10-26-2022 Telephone encounter Rosana Orourke [facility] Start: 10-23-2022 Telephone encounter Rosana Orourke [facility] Start: 10-23-2022 End: 10-24-2022 ambulatory ROSANA Mackenzie [facility] Other Start: 10-23-2022 End: 10-24-2022 Encounter for general adult medical examination without abnormal findings ROSANA Mann [facility] Facility:[facility] Start: 10-19-2022 End: 10-19-2022 ambulatory Rosana Orourke Other [facility] Other Start: 10-19-2022 Encounter for genera l adult medical examination without abnormal findings Rosana Haven [facility] Start: 10-19-2022 Initial preventive medicine new patient 40-64yrs Rosana Haven [facility] Plan of Treatment Date Care Activity Detail Author Start: 11-02-2023 Patient referral [facility] Work Phone: MG Breast - bilatera l Screening [facility] Patient referral [facility] Work Phone: [facility] Payers Date Payer Category Payer Unknown [id number] 1965 Unknown [id number] 1965 Unknown [id number] 1961 Medicare [id number] Medicare [id number] Social History Date Type Detail Facility Unknown if ever smoked [facility] Other Sex Assigned At Sex Assigned At Bir th [facility] Other Start: 11-02-2023 Tobacco smoking status NHIS Smoker (finding) [facility] Start: 1965 Sex Assigned At Female F [facility] Hospital Discharge instructions 11-02-2023 Note Date & Type Note Facility 11-02-2023 Hospital Discharg e instructions Ambulatory OrdersReferral to Pain Management Time Frame: 11/02/23, Location: None Selected [facility] Work Phone: Evaluation note 01-07-2023 Note Date & Type Note Facility 01-07-2023 Evaluation note Encounter Date Diagnosis Assessment Notes Dec, Anxiety (ICD-10 - F41.9) Recommended counseling when able. Right now her schedule is difficult. Call if medication does not help. Dec, Primary insomnia (ICD-10 - F51.01) Discussed stressors. Problems with constant worrying with husbands serious medical issues. [facility] Other Evaluation note 10-19-2022 Note Date & [...] agrees to Cologuard. Last was in 2019. [facility] Other Evaluation note Note Date & Type Note Facility Evaluation note No Information [facility] Other Evaluation note Note Date & Type Note Facility Evaluation note Diagnosis Onset Date Bruising acute Right lumbar radiculopathy a cute Right sciatic nerve pain acu te Screening mammogram for breast cancer acute Wellness examination acute [facility] Work Phone: History general Narrative - Reported [...] tubal 1986 Hospitalization History See Sx Hx [facility] Other Summary Purpose Family History No Family [...] and content) DATE CREATED AUTHOR 11/01/2022 [facility] DATE CREATED AUTHOR AUTHOR'S ORGANIZ ATION 11/12/2023 [facility] Care Teams (unrecognized sec tion and content) [...] BE BASED ON THE PRIMARY CLINICAL RECORDS. [employer] provides no warranty or guarantee of the accuracy or completeness of information in this document.
[2024-02-01 06:57] VITALS: BP 108/74; PULSE 98; TEMP 36.7; O2SAT 98
[2024-02-01 07:24] VITALS: BP 124/69; PULSE 90; O2SAT 93
[2024-02-01 07:26] VITALS: BP 125/70; PULSE 82; O2SAT 97
[2024-02-01] MEDS: BUPIVACAINE HCL 0.25% PF 25 MG/10 ML VIAL 2 ML INJ (07:28)
--- NOTE | 2024-02-01 08:23 | P.ON_ITS ---
Date of procedure: 02/01/24 Pre-op diagnosis: Lumbar spondylosis Post-op diagnosis: same as pre-op Procedure: Right lumbar 4/5, 5/sacral 1 medial branch block Under fluoroscopic guidance Solution injected: [id number] 0.25% Anesthesia :none Immediate complications none Time out process compliant After informed consent obtained from the patient placed in the Prone proposition . area was prepped and draped in a sterile fashion using Cloraprep .25 gauge spinal needle inserted over each of the above mentioned target areas . Wesson were directed towards the target under fluoroscopic guidance . after encountering each of the targets , no indication of intravascular intraneuronal or intrathecal needle tip placement. Then 0 .5 to 1 Milliliter was injected at each level. Wesson removed postoperatively. patient transferred to recovery in stable condition to be discharged home after meeting criteria Anesthesia: Local Surgeon: Leigh Ann Montanez Condition: stable
== END 2024-02-01 07:32 | disposition home or self-care (01) ==
LOC: SURGOUT 06:39
PROVIDERS: PCP Family Medicine; Visit Provider Anesthesiology Pain Medicine
DX: M47.816 Spondylosis without myelopathy or radiculopathy, lumbar region (principal)
CPT/HCPCS: 64493; 64494; J0665

== ENCOUNTER 2024-02-02 13:35 | Outpatient (OUT) | payer MEDICARE, SELFPAY ==
--- OUTSIDE RECORDS SUMMARY | 2024-02-02 13:58 | XMS_ITS | CCD ---
Author Organization [facility] Care Team Providers Care Master [employer] Name Role Phone Rosana Orourke Unavailable ROSANA OROURKE Admitting Unavailable ROSANA OROURKE Attending Unavailable ROSANA OROURKE Primary Care Unavailable ROSANA OROURKE Consulting Unavailable ROSANA OROURKE Referring Unavailable ROSANA OROURKE Primary Care Unavailable ROSANA OROURKE Referring Unavailable ROSANA OROURKE Primary Care Unavailable Allergies Allergy Classification Reported Allergen(s) Allergy Type Date of Onset Reaction(s) Facility (6 sources) Morphine Drug Allergy Unknown [employer] Other Medications Current Medications Medication Drug Class(es) [...] Anion gap [Moles/Vol] 6 mmol/L Normal 5-15 [facility] Comment on above: Performed By: #### C BCA, BMP #### [facility] ([id number]) [address] [address] [place] [address] Calcium [Mass/Vol] 9.7 mg/dL Normal 8.5-10.5 [facility] Comment on above: Performed By: #### C BCA, BMP #### [facility] ([id number]) [address] [facility] [address] [place] [address] Chloride [Moles/Vol] 102 mmol/L Normal 98-109 [facility] Comment on above: Performed By: #### C BCA, BMP #### [facility] ([id number]) [address] [address] [place] [address] CO2 [Moles/Vol] 32 mmol/L Normal 22-32 [facility] Comment on above: Performed By: #### C BCA, BMP #### [facility] ([id number]) [address] [address] [place] [address] Creatinine [Mass/Vol] 0.63 mg/dL Normal 0.40-1.00 [facility] Comment on above: Result Comment: METH OD TRACEABLE TO IDMS STANDARD Performed By: #### C BCA, BMP #### [facility] ([id number]) [address] [place] [address] eGFR (CKD-EPI) NON-RACE DEPENDENT >90 Normal >59 [facility] Comment on above: Result Comment: Reported eGFR is based on the CKD-EPI 2020 equation that does not use a race coefficient. Performed By: #### C MIGUEL, BMP #### [facility] ([id number]) [address] [place] [address] Glucose [Mass/Vol] 128 mg/dL High 65-99 [facility] Comment on above: Performed By: #### C MIGUEL, BMP #### [facility] ([id number]) [address] [address] [place] [address] Potassium [Moles/Vol] 4.3 mmol/L Normal 3.5-5.0 [facility] Comment on above: Performed By: #### C MIGUEL, BMP #### [facility] ([id number]) [address] [place] [address] Sodium [Moles/Vol] 140 mmol/L Normal 134-146 [facility] Comment on above: Performed By: #### C MIGUEL, BMP #### [facility] ([id number]) [address] [place] [address] Urea nitrogen [Mass/Vol] 9 mg/dL Normal 5-23 [facility] Comment on above: Performed By: #### C MIGUEL, BMP #### [facility] ([id number]) [address] [address] [place] [address] CBC AND AUTO DIFFon 11-11-19 24 ABSOLUTE BASOPHIL 0.1 X10E9/L Normal 0.0-0.2 [facility] Comment on above: Performed By: #### C BCA, BMP #### [facility] ([id number]) [address] [address] [place] [address] ABSOLUTE NEUTROPHIL 5.1 X10E9/L Normal 1.5-6.6 [facility] Comment on above: Performed By: #### C MIGUEL, BMP #### [facility] ([id number]) [address] [place] [address] Basophils/100 WBC (Bld) 0.5 % Normal [facility] Comment on above: Performed By: #### C MIGUEL, BMP #### [facility] ([id number]) [address] [place] [address] Eosinophils (Bld) [#/Vol] 0.3 10*3/uL Normal 0.0-0.4 [facility] Comment on above: Performed By: #### C MIGUEL, BMP #### [facility] ([id number]) [address] [address] [place] [address] Eosinophils/100 WBC (Bld) 2.7 % Normal [facility] Comment on above: Performed By: #### C MIGUEL, BMP #### [facility] ([id number]) [address] [place] [address] Erythrocyte distribution width (RBC) [Ratio] 13.7 % Normal 11.5-15.0 [facility] Comment on above: Performed By: #### C MIGUEL, BMP #### [facility] ([id number]) [address] [address] [place] [address] Hematocrit (Bld) [Volume fraction] 40.6 % Normal 35-47 [facility] Comment on above: Performed By: #### C MIGUEL, BMP #### [facility] ([id number]) [address] [address] [place] [address] Hemoglobin (Bld) [Mass/Vol] 13.7 g/dL Normal 11.7-15.5 [facility] Comment on above: Performed By: #### C BCA, BMP #### [facility] ([id number]) [address] [place] [address] Lymphocytes (Bld) [#/Vol] 3.8 10*3/uL High 1.0-3.5 [facility] Comment on above: Performed By: #### C BCA, BMP #### [facility] ([id number]) [address] [place] [address] Lymphocytes/100 WBC (Bld) 37.9 % Normal [facility] Comment on above: Performed By: #### C BCA, BMP #### [facility] ([id number]) [address] [place] [address] MCH (RBC) [Entitic mass] 31.1 pg Normal 27-34 [facility] Comment on above: Performed By: #### C MIGUEL, BMP #### [facility] ([id number]) [address] [place] [address] MCHC (RBC) [Mass/Vol] 33.6 g/dL Normal 32-36 [facility] Comment on above: Performed By: #### C BCA, BMP #### [facility] ([id number]) [address] [place] [address] MCV (RBC) [Entitic vol] 93 fL Normal 80-100 [facility] Comment on above: Performed By: #### C BCA, BMP #### [facility] ([id number]) [address] [place] [address] Monocytes (Bld) [#/Vol] 0.8 10*3/uL Normal 0-0.9 [facility] Comment on above: Performed By: #### C BCA, BMP #### [facility] ([id number]) [address] [place] [address] Monocytes/100 WBC (Bld) 8.0 % Normal [facility] Comment on above: Performed By: #### C BCA, BMP #### [facility] ([id number]) [address] [place] [address] Neutrophils/100 WBC (Bld) 50.9 % Normal [facility] Comment on above: Performed By: #### Irene RIVERA, BMP #### [facility] ([id number]) [address] [facility] [address] [place] [address] Platelet mean volume (Bld) [Entitic vol] 7.9 fL Normal 7-12 [facility] Comment on above: Performed By: #### Irene RIVERA, BMP #### [facility] ([id number]) [address] [facility] [address] [place] [address] Platelets (Bld) [#/Vol] 304 10*3/uL Normal 150-450 [facility] Comment on above: Performed By: #### Irene RIVERA, BMP #### [facility] ([id number]) [address] [facility] [address] [place] [address] RBC COUNT 4.39 X10E12/L Normal 3.80-5.20 [facility] Comment on above: Performed By: #### Irene RIVERA, BMP #### [facility] ([id number]) [address] [address] WBC (Bld) [#/Vol] 10.0 10*3/uL Normal 4.0-11.0 [facility] Comment on above: Performed By: #### Irene RIVERA, BMP #### [facility] ([id number]) [address] [place] [address] MAMM SCREENING BILATERAL W C train brakeman 11-11-2023 MAMM SCREENING BILATERAL W CAD MAMM [...] AM 1 b MAMM 1 YR Normal [facility] CBC AUTO DIFFon 10-23-2022 BASO # 0.0 103/ul Normal 0.0-0.1 [facility] Comment on above: Performed By: #### C BC #### [facility] [address] [place] [address] Dr. Jo Ann Rene Basophils/100 WBC (Bld) 0.4 % Normal 0.2-2.0 [facility] Comment on above: Performed By: #### C BC #### [facility] [address] [place] [address] Dr. Jo Ann Rene EO # 0.4 103/ul Normal 0.0-0.7 [facility] Comment on above: Performed By: #### C BC #### [facility] [address] [place] [address] Dr. Jo Ann Rene Eosinophils/100 WBC (Bld) 4.7 % Normal 0.9-7.0 [facility] Comment on above: Performed By: #### C BC #### [facility] [address] [place] [address] Dr. Jo Ann Rene Erythrocyte distribution width (RBC) [Ratio] 12.8 % Normal 11.0-15.0 [facility] Comment on above: Performed By: #### C BC #### [facility] [address] [place] [address] Dr. Jo Ann Rene Hematocrit (Bld) [Volume fraction] 42.6 % Normal 36.0-48.0 [facility] Comment on above: Performed By: #### C BC #### [facility] [address] [place] [address] Dr. Jo Ann Rene Hemoglobin (Bld) [Mass/Vol] 14.5 g/dL Normal 12.0-16.0 [facility] Comment on above: Performed By: #### C BC #### [facility] [address] [place] [address] Dr. Jo Ann Rene IG # 0.03 10e3/ul Normal 0.00-0.03 [facility] Comment on above: Performed By: #### C BC #### [facility] [address] [place] [address] Dr. Jo Ann Rene IG % 0.3 % Normal 0.0-0.5 [facility] Comment on above: Performed By: #### C BC #### [facility] [address] [place] [address] Dr. Jo Ann Rene LYMPH # 3.1 103/ul Normal 1.2-3.8 [facility] Comment on above: Performed By: #### C BC #### [facility] [address] [place] [address] Dr. Jo Ann Rene Lymphocytes/100 WBC (Bld) 34.1 % Normal 20.5-60.0 [facility] Comment on above: Performed By: #### C BC #### [facility] [address] [place] [address] Dr. Jo Ann Rene MANUAL DIFF REQ NO Normal [facility] Comment on above: Performed By: #### C BC #### [facility] [address] [place] [address] Dr. Jo Ann Rene MCH (RBC) [Entitic mass] 30.9 pg Normal 26.7-34.0 [facility] Comment on above: Performed By: #### C BC #### [facility] [address] [place] [address] Dr. Jo Ann Rene MCHC (RBC) [Mass/Vol] 34.0 g/dL Normal 29.9-35.2 [facility] Comment on above: Performed By: #### C BC #### [facility] [address] [place] [address] Dr. Jo Ann Rene MCV (RBC) [Entitic vol] 90.6 fL Normal 81.0-99.0 [facility] Comment on above: Performed By: #### C BC #### [facility] [address] [place] [address] Dr. Jo Ann Rene MONO # 0.8 103/ul Normal 0.3-0.8 [facility] Comment on above: Performed By: #### C BC #### [facility] [address] [place] [address] Dr. Jo Ann Rene Monocytes/100 WBC (Bld) 8.6 % Normal 1.7-12.0 [facility] Comment on above: Performed By: #### C BC #### [facility] [address] [place] [address] Dr. Jo Ann Rene NEUT # 4.7 103/ul Normal 1.4-6.5 [facility] Comment on above: Performed By: #### C BC #### [facility] [address] [place] [address] Dr. Jo Ann Rene Neutrophils/100 WBC (Bld) 51.9 % Normal 43.0-75.0 [facility] Comment on above: Performed By: #### C BC #### [facility] [address] [place] [address] Dr. Jo Ann Rene Platelet mean volume (Bld) [Entitic vol] 9.8 fL Normal 9.5-13.5 [facility] Comment on above: Performed By: #### C BC #### [facility] [address] [place] [address] Dr. Jo Ann Rene PLT 303 103/ul Normal 150-450 [facility] Comment on above: Performed By: #### C BC #### [facility] [address] [place] [address] Dr. Jo Ann Rene RBC 4.70 106/ul Normal 4.20-5.40 [facility] Comment on above: Performed By: #### C BC #### [facility] [address] [place] [address] Dr. Jo Ann Rene WBC 9.1 103/ul Normal 4.0-11.0 [facility] Comment on above: Performed By: #### C BC #### [facility] [address] [place] [address] Dr. Jo Ann Rene LIPID PROFILEon 10-23-2022 CHOL-HDL RATIO NORM SEE BELOW Normal [facility] Comment on above: Result Comment: 3.3 - 4.4 LOW RISK 4.4 - 7.1 AVERAGE RISK 7.1 - 11.0 MODERATE RISK >11.0 HIGH RISK Performed By: #### L IPID, BMP #### [facility] [address] [address] [address] Jo Ann Rene Cholesterol [Mass/Vol] 174 mg/dL Normal <=200 [facility] Comment on above: Performed By: #### L IPID, BMP #### [facility] [address] [address] [address] Jo Ann Rene Cholesterol in HDL [Mass/Vol] 57 mg/dL Normal 40-60 [facility] Comment on above: Performed By: #### L IPID, BMP #### [facility] [address] [address] [address] Jo Ann Rene Cholesterol in LDL [Mass/Vol] 109.2 mg/dL Normal [facility] Comment on above: Performed By: #### L IPID, BMP #### [facility] [address] [address] [address] Jo Ann Rene Cholesterol.total/C holesterol in HDL [Mass ratio] 3.1 {ratio} Normal [facility] Comment on above: Performed By: #### L IPID, BMP #### [facility] [address] [address] [address] Jo Ann Rene HDL NORMAL > or = 60 mg/dl - LOW CARDIOVASCULAR RISK <40 mg/dl - HIGH CARDIOVASCULAR RISK Normal [facility] Comment on above: Performed By: #### L IPID, BMP #### [facility] [address] [address] [address] Jo Ann Rene LDL CALC NORMAL SEE BELOW Normal [facility] Comment on above: Result Comment: <100 mg/dl OPTIMAL 100 - 129 mg/dl NEAR OR ABOVE OPTIMAL 130 - 159 mg/dl BORDERLINE HIGH 160 - 189 mg/dl HIGH >190 mg/dl VERY HIGH Performed By: #### L IPID, BMP #### [facility] [address] [address] [address] Jo Ann Rene Triglyceride [Mass/Vol] 39 mg/dL Normal <=150 [facility] Comment on above: Performed By: #### L IPID, BMP #### [facility] [address] [place] [address] Dr. Jo Ann Rene VLDL CALC 7.8 mg/dL Normal [facility] Comment on above: Performed By: #### L IPID, BMP #### [facility] [address] [place] [address] Dr. Jo Ann Rene PROF CHEM 8 (BAS METB)on Anion gap [Moles/Vol] 10.4 mmol/L Normal [facility] Comment on above: Performed By: #### L IPID, BMP #### [facility] [address] [place] [address] Dr. Jo Ann Rene Calcium [Mass/Vol] 9.7 mg/dL Normal 8.5-10.1 [facility] Comment on above: Performed By: #### L IPID, BMP #### [facility] [address] [place] [address] Dr. Jo Ann Rene Chloride [Moles/Vol] 104 mmol/L Normal 98-107 [facility] Comment on above: Performed By: #### L IPID, BMP #### [facility] [address] [place] [address] Dr. Jo Ann Rene CO2 [Moles/Vol] 31.1 mmol/L Normal 21.0-32.0 [facility] Comment on above: Performed By: #### L IPID, BMP #### [facility] [address] [place] [address] Dr. Jo Ann Rene Creatinine [Mass/Vol] 0.74 mg/dL Normal 0.55-1.02 [facility] Comment on above: Performed By: #### L IPID, BMP #### [facility] [address] [place] [address] Dr. Jo Ann Rene EGFR-AF INDIAN >60 Normal >=60 [facility] Comment on above: Performed By: #### L IPID, BMP #### [facility] [address] [place] [address] Dr. Jo Ann Rene EGFR-NON AF INDIAN >60 Normal >=60 [facility] Comment on above: Performed By: #### L IPID, BMP #### [facility] [address] [address] [address] Jo Ann Rene Glucose [Mass/Vol] 119 mg/dL Critically high 74-106 [facility] Comment on above: Performed By: #### L IPID, BMP #### [facility] [address] [address] [address] Jo Ann Rene Potassium [Moles/Vol] 4.5 mmol/L Normal 3.5-5.1 [facility] Comment on above: Performed By: #### L IPID, BMP #### [facility] [address] [place] [address] Dr. Jo Ann Rene Sodium [Moles/Vol] 141 mmol/L Normal 136-145 [facility] Comment on above: Performed By: #### L IPID, BMP #### [facility] [address] [address] [address] Jo Ann Rene Urea nitrogen [Mass/Vol] 7.0 mg/dL Normal 7.0-18.0 [facility] Comment on above: Performed By: #### L IPID, BMP #### [facility] [address] [place] [address] Dr. Jo Ann Rene Urea nitrogen/Creatinine [Mass ratio] 9.5 mg/mg Normal [facility] Comment on above: Performed By: #### L IPID, BMP #### [facility] [address] [place] [address] Dr. Jo Ann Rene Vital Signs Date Time Vital Sign Value Performing Clinician Facility 11-02-2023 13:42-0400 Body height 165.1 cm [facility] 11-02-2023 13:42-0400 Body mass index (BMI) [Ratio] 22.3 kg/m2 [facility] 11-02-2023 13:[id number] Body weight 60.83 kg [facility] 11-02-2023 13:42-0400 Diastolic blood pressure 89 mm[Hg] [facility] 11-02-2023 13:42-0400 Heart rate 84 /min [facility] 11-02-2023 13:42-0400 Systolic blood pressure 143 mm[Hg] [facility] 01-07-2023 10:45-0400 Body height 165.1 cm Rosana Orourke Other [employer] Other 01-07-2023 10:45-0400 Body mass index (BMI) [Ratio] 21.96 kg/m2 Rosana Orourke Other [employer] Other 01-07-2023 10:45-0400 Body weight 59.88 kg Rosana Orourke Other [employer] Other 01-07-2023 10:45-0400 Diastolic blood pressure 74 mm[Hg] Rosana Orourke Other [employer] Other 01-07-2023 10:45-0400 SaO2% (BldA) [Mass fraction] 97 % Rosana Orourke Other [employer] Other 01-07-2023 10:45-0400 Systolic blood pressure 118 mm[Hg] Rosana Orourke Other [employer] Other 10-19-2022 12:30-0400 Body height 165.1 cm Rosana Orourke Other [employer] Other 10-19-2022 12:30-0400 Body mass index (BMI) [Ratio] 24.46 kg/m2 Rosana Orourke Other [employer] Other 10-19-2022 12:30-0400 Body weight 66.68 kg Rosana Orourke Other [employer] Other 10-19-2022 12:30-0400 Diastolic blood pressure 80 mm[Hg] Rosana Orourke Other [employer] Other 10-19-2022 12:30-0400 SaO2% (BldA) [Mass fraction] 97 % Rosana Orourke Other [employer] Other 10-19-2022 12:30-0400 Systolic blood pressure 132 mm[Hg] Rosana Orourke Other [employer] Other Encounters Encounter Date Encounter Type Care Provider Facility Start: 11-11-2023 End: 11-12-2023 ambulatory ROSANA OROURKE [facility] Start: 11-02-2023 Patient encounter status [facility] Start: 11-02-2023 End: 11-02-2023 ambulatory [facility] Work Phone: Start: 11-02-2023 End: 11-02-2023 Encounter for general adult medical examination without abnormal findings [facility] Start: 11-02-2023 End: 11-02-2023 Patient encounter procedure [facility] Work Phone: Start: 02-04-2023 End: 02-04-2023 ambulatory Rosana Orourke Other [employer] Other Start: 02-04-2023 Telephone encounter Rosana Orourke [facility] Start: 01-07-2023 End: 01-07-2023 ambulatory Rosana Orourke Other [employer] Other Start: 01-07-2023 Office outpatient vi sit 15 minutes Rosana Orourke [facility] Start: 11-02-2022 End: 11-02-2022 ambulatory Rosana Orourke Other [employer] Other Start: 11-02-2022 Telephone encounter Rosana Orourke [facility] Start: 11-01-2022 Encounter for genera l adult medical examination without abnormal findings ROSANA OROURKE [facility] Start: 10-26-2022 End: 10-26-2022 ambulatory Rosana Orourke Other [employer] Other Start: 10-26-2022 Telephone encounter Rosana Orourke [facility] Start: 10-23-2022 Telephone encounter Rosana Orourke [facility] Start: 10-23-2022 End: 10-24-2022 ambulatory ROSANA Mackenzie [facility] [employer] Other Start: 10-23-2022 End: 10-24-2022 Encounter for general adult medical examination without abnormal findings ROSANA Mann [facility] Facility:[facility] Start: 10-19-2022 End: 10-19-2022 ambulatory Rosana Orourke Other [employer] Other Start: 10-19-2022 Encounter for genera l adult medical examination without abnormal findings Rosana Haven [facility] Start: 10-19-2022 Initial preventive medicine new patient 40-64yrs Rosana Haven [facility] Plan of Treatment Date Care Activity Detail Author Start: 11-02-2023 Patient referral [facility] Work Phone: MG Breast - bilatera l Screening [facility] Patient referral [facility] Work Phone: [facility] Payers Date Payer Category Payer Unknown [id number] 1965 Unknown [id number] 1965 Unknown [id number] 1961 Medicare [id number] Medicare [id number] Social History Date Type Detail Facility Unknown if ever smoked [employer] Other Sex Assigned At Sex Assigned At Bir th [employer] Other Start: 11-02-2023 Tobacco smoking status NHIS Smoker (finding) [facility] Start: 1965 Sex Assigned At Female F [facility] Hospital Discharge instructions 11-02-2023 Note Date & Type Note Facility 11-02-2023 Hospital Discharg e instructions Ambulatory OrdersReferral to Pain Management Time Frame: 11/02/23, Location: None Selected [facility] Work Phone: Evaluation note 01-07-2023 Note Date & Type Note Facility 01-07-2023 Evaluation note Encounter Date Diagnosis Assessment Notes Dec, Anxiety (ICD-10 - F41.9) Recommended counseling when able. Right now her schedule is difficult. Call if medication does not help. Dec, Primary insomnia (ICD-10 - F51.01) Discussed stressors. Problems with constant worrying with husbands serious medical issues. [employer] Other Evaluation note 10-19-2022 Note Date & [...] agrees to Cologuard. Last was in 2019. [employer] Other Evaluation note Note Date & Type Note Facility Evaluation note No Information [facility] Other Evaluation note Note Date & Type Note Facility Evaluation note Diagnosis Onset Date Bruising acute Right lumbar radiculopathy a cute Right sciatic nerve pain acu te Screening mammogram for breast cancer acute Wellness examination acute [facility] Work Phone: History general Narrative - [...] tubal 1986 Hospitalization History See Sx Hx [employer] Other Summary Purpose Family History No Family [...] and content) DATE CREATED AUTHOR 11/01/2022 [facility] DATE CREATED AUTHOR AUTHOR'S ORGANIZ ATION 11/12/2023 [facility] Care Teams (unrecognized sec tion and content) [...] BE BASED ON THE PRIMARY CLINICAL RECORDS. [employer] provides no warranty or guarantee of the accuracy or completeness of information in this document.
--- NOTE | 2024-02-02 14:00 | P.CN_ITS ---
Consult Note: HPI Data of Consult Patient: known to practice within the last 3 years Requesting Physician: Trena Ortega NP Primary Care Provider: Rosana Orourke MD Consult Narrative Narrative: Vida Dee a pleasant 58 year old female presents for evaluation and management of chronic low back pain. Patient has had chronic low back pain secondary to facet arthropathy present greater than 6 months, unresponsive to HEP greater than 6 weeks tylenol baclofen and THC gummies. Patient recently underwent right L4/5 L5/S1 facet medial branch block #1 with >80% improvement in left sided axial low back pain immediately following and hours after the injection. Pain today 4/10 increasing to 10/10 with standing and walking, as well as twisting. Patient previously underwent left L4/5 L5/S1 facet medial branch block #1 with >80% improvement in low back pain immediately following and hours after the injection. cc:: CC: Trena Ortega NP Review of Systems ROS Status of ROS 10 or more systems reviewed and unremark able except as noted in history and below Musculoskeletal Reports: back pain PFSH PFSH Medical History (Updated 12/29/23 @ 14:12 by Trena Ortega NP) Osteoarthritis ?M19.90 - Unspecified osteoarthritis, unspecified site (ICD-10) Surgical History History of tubal ligation ?Z98.51 - Tubal ligation status (ICD-10) History of hysterectomy ?Z90.710 - Acquired absence of both cervix and uterus (ICD-10) Meds Home Medications and Allergies Home Medications ?Medication ?Instructions ?Recorded ?Confirmed ?Type baclofen 10 mg tablet 10 mg PO BID 11/18/23 02/01/24 History cholecalciferol (vitamin D3) 125 125 mcg PO DAILY 11/18/23 02/01/24 History mcg (5,000 unit) tablet (Vitamin D3) diphenhydramine HCl 25 mg capsule 25 mg PO Q8H PRN allergy symptoms 11/18/23 02/01/24 History (Benadryl) loratadine-pseudoephedrine ER 10 1 tab PO DAILY 11/18/23 02/01/24 History mg-240 mg tablet,extended [id number] (Claritin-D 24 Hour) melatonin 10 mg capsule 10 mg PO DAILY 11/18/23 02/01/24 History ascorbate calcium (vitamin C) .ROUTE 02/01/24 History Allergies Allergy/AdvReac Type Severity Reaction Status Date / Time No Known Drug Allergies Allergy Verified 02/01/24 06:49 Exam Constitutional Documenting provider has reviewed patient's vital signs: yes Common normals: no apparent distress, oriented x3, healthy appearing, alert and well nourished General appearance: cooperative HENMT Common normals: normocephalic, hearing grossly normal bilaterally and moist oral mucous membranes Head and scalp: normocephalic Eye Common normals: PERRL Pupil: PERRL Neck & C-Spine Common normals: full ROM General: normal visual inspection Chest Common normals: inspection of chest normal Respiratory Common normals: normal respiratory effort, no retractions and no use of accessory muscles Back & Pelvis Lumbar spine/lower back: ROM limited, pain with ROM and straight leg raise negative bilaterally Sacroiliac joints: SI joints normal Other: bilateral facet loading tenderness from L3-S1 facets no radiculopathy, sensation intact BLE, strength 5/5 in BLE Extremity Common normals: normal to inspection and full ROM Neuro Common normals: oriented x3, CN's II-XII intact bilaterally, moves all extremities, no focal motor deficits, no sensory deficits noted and deep tendon reflexes 2+ bilaterally Sensorium/orientation: alert Motor exam: strength 5/5 throughout and no movement abnormalities noted Psych Common normals: mental status grossly normal, thought process normal, cooperative, affect normal, speech normal and activity/motor behavior normal Speech: normal speech Thought process: normal thought process Results Additional Findings Additional findings: If on a controlled substance or opioids, I have checked an [place] report on this patient and there are no aberrancies noted in the prescribing history.??If on a controlled substance or opioid a drug screen was completed and reviewed within the last year, and if there has not been a drug screen completed we ordered one today to monitor higher risk, state monitored pain medication use. As part of providing excellent, safe, comprehensive care, the following was completed at our patient's visit: 1. A medication reconciliation and review to ensure accurate knowledge of current/active medications, including asking our patients to inform us about any [id number] medications or herbal remedies/nutritional supplements/alternative remedies. 2. A review to specifically ensure our patients have had annual screening for screening for depression, screening for tobacco use, and screening for unhealthy alcohol use. For concerning screenings had a discussion with the patient, provided patient education, and recommended follow-up with primary care provider when appropriate. If patient noted with a risk of falling, they received education on strength, gait, and balance training to prevent future risk of falling. Assessment and Plan Assessment and Plan (1) Lumbar spondylosis: Plan bilateral L4-5 L5-S1 MBB #2 working towards RFA, to be completed under fluoroscopy, risks vs benefits reviewed continue current medications f/u after injection
== END 2024-02-02 13:36 | disposition home or self-care (01) ==
LOC: PM 13:35
PROVIDERS: PCP Family Medicine; Visit Provider Nurse Practitioner
DX: M47.816 Spondylosis without myelopathy or radiculopathy, lumbar region (principal)
CPT/HCPCS: G0463

== ENCOUNTER 2024-02-15 08:41 | Day surgery (SDC) | payer MEDICARE, SELFPAY ==
[2024-02-15 08:49] VITALS: BP 128/87; PULSE 92; TEMP 36.6; O2SAT 99
--- OUTSIDE RECORDS SUMMARY | 2024-02-15 08:53 | XMS_ITS | CCD ---
Author Organization [facility] Care Team Providers Care Ground Support Equipment Assembler Name Role Phone Rosana Orourke Unavailable ROSANA OROURKE Admitting Unavailable ROSANA OROURKE Attending Unavailable ROSANA OROURKE Primary Care Unavailable ROSANA OROURKE Consulting Unavailable ROSANA OROURKE Referring Unavailable ROSANA OROURKE Primary Care Unavailable ROSANA OROURKE Referring Unavailable ROSANA OROURKE Primary Care Unavailable Allergies Allergy Classification Reported Allergen(s) Allergy Type Date of Onset Reaction(s) Facility (6 sources) Morphine Drug Allergy Unknown Search to Phone Other Medications Current Medications Medication Drug Class(es) [...] Anion gap [Moles/Vol] 6 mmol/L Normal 5-15 [facility] Comment on above: Performed By: #### C BCA, BMP #### [facility] ([id number]) [address] [place] [address] Calcium [Mass/Vol] 9.7 mg/dL Normal 8.5-10.5 [facility] Comment on above: Performed By: #### C BCA, BMP #### [facility] ([id number]) [address] [facility] [address] [place] [address] Chloride [Moles/Vol] 102 mmol/L Normal 98-109 [facility] Comment on above: Performed By: #### C BCA, BMP #### [facility] ([id number]) [address] [place] [address] CO2 [Moles/Vol] 32 mmol/L Normal 22-32 [facility] Comment on above: Performed By: #### C BCA, BMP #### [facility] ([id number]) [address] [place] [address] Creatinine [Mass/Vol] 0.63 mg/dL Normal 0.40-1.00 [facility] Comment on above: Result Comment: METH OD TRACEABLE TO IDMS STANDARD Performed By: #### C BCA, BMP #### [facility] ([id number]) [address] [address] [place] [address] eGFR (CKD-EPI) NON-RACE DEPENDENT >90 Normal >59 [facility] Comment on above: Result Comment: Reported eGFR is based on the CKD-EPI 2020 equation that does not use a race coefficient. Performed By: #### C MIGUEL, BMP #### [facility] ([id number]) [address] [place] [address] Glucose [Mass/Vol] 128 mg/dL High 65-99 [facility] Comment on above: Performed By: #### C MIGUEL, BMP #### [facility] ([id number]) [address] [address] [place] [address] Potassium [Moles/Vol] 4.3 mmol/L Normal 3.5-5.0 [facility] Comment on above: Performed By: #### C MIGUEL, BMP #### [facility] ([id number]) [address] [place] [address] Sodium [Moles/Vol] 140 mmol/L Normal 134-146 [facility] Comment on above: Performed By: #### C MIGUEL, BMP #### [facility] ([id number]) [address] [place] [address] Urea nitrogen [Mass/Vol] 9 mg/dL Normal 5-23 [facility] Comment on above: Performed By: #### C MIGUEL, BMP #### [facility] ([id number]) [address] [place] [address] CBC AND AUTO DIFFon 11-11-19 24 ABSOLUTE BASOPHIL 0.1 X10E9/L Normal 0.0-0.2 [facility] Comment on above: Performed By: #### C BCA, BMP #### [facility] ([id number]) [address] [place] [address] ABSOLUTE NEUTROPHIL 5.1 X10E9/L Normal 1.5-6.6 [facility] Comment on above: Performed By: #### C MIGUEL, BMP #### [facility] ([id number]) [address] [place] [address] Basophils/100 WBC (Bld) 0.5 % Normal [facility] Comment on above: Performed By: #### C MIGUEL, BMP #### [facility] ([id number]) [address] [place] [address] Eosinophils (Bld) [#/Vol] 0.3 10*3/uL Normal 0.0-0.4 [facility] Comment on above: Performed By: #### C MIGUEL, BMP #### [facility] ([id number]) [address] [address] [place] [address] Eosinophils/100 WBC (Bld) 2.7 % Normal [facility] Comment on above: Performed By: #### C MIGUEL, BMP #### [facility] ([id number]) [address] [place] [address] Erythrocyte distribution width (RBC) [Ratio] 13.7 % Normal 11.5-15.0 [facility] Comment on above: Performed By: #### C MIGUEL, BMP #### [facility] ([id number]) [address] [address] [place] [address] Hematocrit (Bld) [Volume fraction] 40.6 % Normal 35-47 [facility] Comment on above: Performed By: #### C MIGUEL, BMP #### [facility] ([id number]) [address] [address] [place] [address] Hemoglobin (Bld) [Mass/Vol] 13.7 g/dL Normal 11.7-15.5 [facility] Comment on above: Performed By: #### C BCA, BMP #### [facility] ([id number]) [address] [place] [address] Lymphocytes (Bld) [#/Vol] 3.8 10*3/uL High 1.0-3.5 [facility] Comment on above: Performed By: #### C BCA, BMP #### [facility] ([id number]) [address] [place] [address] Lymphocytes/100 WBC (Bld) 37.9 % Normal [facility] Comment on above: Performed By: #### C BCA, BMP #### [facility] ([id number]) [address] [place] [address] MCH (RBC) [Entitic mass] 31.1 pg Normal 27-34 [facility] Comment on above: Performed By: #### C MIGUEL, BMP #### [facility] ([id number]) [address] [place] [address] MCHC (RBC) [Mass/Vol] 33.6 g/dL Normal 32-36 [facility] Comment on above: Performed By: #### C BCA, BMP #### [facility] ([id number]) [address] [place] [address] MCV (RBC) [Entitic vol] 93 fL Normal 80-100 [facility] Comment on above: Performed By: #### C BCA, BMP #### [facility] ([id number]) [address] [place] [address] Monocytes (Bld) [#/Vol] 0.8 10*3/uL Normal 0-0.9 [facility] Comment on above: Performed By: #### C BCA, BMP #### [facility] ([id number]) [address] [place] [address] Monocytes/100 WBC (Bld) 8.0 % Normal [facility] Comment on above: Performed By: #### C BCA, BMP #### [facility] ([id number]) [address] [place] [address] Neutrophils/100 WBC (Bld) 50.9 % Normal [facility] Comment on above: Performed By: #### Irene RIVERA, BMP #### [facility] ([id number]) [address] [facility] [address] [place] [address] Platelet mean volume (Bld) [Entitic vol] 7.9 fL Normal 7-12 [facility] Comment on above: Performed By: #### Irene RIVERA, BMP #### [facility] ([id number]) [address] [facility] [address] [place] [address] Platelets (Bld) [#/Vol] 304 10*3/uL Normal 150-450 [facility] Comment on above: Performed By: #### Irene RIVERA, BMP #### [facility] ([id number]) [address] [facility] [address] [place] [address] RBC COUNT 4.39 X10E12/L Normal 3.80-5.20 [facility] Comment on above: Performed By: #### Irene RIVERA, BMP #### [facility] ([id number]) [address] [address] WBC (Bld) [#/Vol] 10.0 10*3/uL Normal 4.0-11.0 [facility] Comment on above: Performed By: #### Irene RIVERA, BMP #### [facility] ([id number]) [address], [address] [place] [address] MAMM SCREENING BILATERAL W C product safety lead 11-11-2023 MAMM SCREENING BILATERAL W CAD MAMM [...] AM 1 b MAMM 1 YR Normal [facility] CBC AUTO DIFFon 10-23-2022 BASO # 0.0 103/ul Normal 0.0-0.1 [facility] Comment on above: Performed By: #### C BC #### [facility] [address] [place] [address] Dr. Jo Ann Rene Basophils/100 WBC (Bld) 0.4 % Normal 0.2-2.[address] [facility] Comment on above: Performed By: #### C BC #### [facility] [address] [place] [address] Dr. Jo Ann Rene EO # 0.4 103/ul Normal 0.0-0.7 [facility] Comment on above: Performed By: #### C BC #### [facility] [address] [place] [address] Dr. Jo Ann Rene Eosinophils/100 WBC (Bld) 4.7 % Normal 0.9-7.[address] [facility] Comment on above: Performed By: #### C BC #### [facility] [address] [place] [address] Dr. Jo Ann Rene Erythrocyte distribution width (RBC) [Ratio] 12.8 % Normal 11.0-15.[address] [facility] Comment on above: Performed By: #### C BC #### [facility] [address] [place] [address] Dr. Jo Ann Rene Hematocrit (Bld) [Volume fraction] 42.6 % Normal 36.0-48.[address] [facility] Comment on above: Performed By: #### C BC #### [facility] [address] [place] [address] Dr. Jo Ann Rene Hemoglobin (Bld) [Mass/Vol] 14.5 g/dL Normal 12.0-16.0 [facility] Comment on above: Performed By: #### C BC #### [facility] [address] [place] [address] Dr. Jo Ann Rene IG # 0.03 10e3/ul Normal 0.00-0.03 [facility] Comment on above: Performed By: #### C BC #### [facility] [address] [place] [address] Dr. Jo Ann Rene IG % 0.3 % Normal 0.0-0.5 [facility] Comment on above: Performed By: #### C BC #### [facility] [address] [place] [address] Dr. Jo Ann Rene LYMPH # 3.1 103/ul Normal 1.2-3.[address] [facility] Comment on above: Performed By: #### C BC #### [facility] [address] [place] [address] Dr. Jo Ann Rene Lymphocytes/100 WBC (Bld) 34.1 % Normal 20.5-60.0 [facility] Comment on above: Performed By: #### C BC #### [facility] [address] [place] [address] Dr. Jo Ann Rene MANUAL DIFF REQ NO Normal [facility] Comment on above: Performed By: #### C BC #### [facility] [address] [place] [address] Dr. Jo Ann Rene MCH (RBC) [Entitic mass] 30.9 pg Normal 26.7-34.0 [facility] Comment on above: Performed By: #### C BC #### [facility] [address] [place] [address] Dr. Jo Ann Rene MCHC (RBC) [Mass/Vol] 34.0 g/dL Normal 29.9-35.[address] [facility] Comment on above: Performed By: #### C BC #### [facility] [address] [place] [address] Dr. Jo Ann Rene MCV (RBC) [Entitic vol] 90.6 fL Normal 81.0-99.0 [facility] Comment on above: Performed By: #### C BC #### [facility] [address] [place] [address] Dr. Jo Ann Rene MONO # 0.8 103/ul Normal 0.3-0.8 [facility] Comment on above: Performed By: #### C BC #### [facility] [address] [place] [address] Dr. Jo Ann Rene Monocytes/100 WBC (Bld) 8.6 % Normal 1.7-12.0 [facility] Comment on above: Performed By: #### C BC #### [facility] [address] [place] [address] Dr. Jo Ann Rene NEUT # 4.7 103/ul Normal 1.4-6.5 [facility] Comment on above: Performed By: #### C BC #### [facility] [address] [place] [address] Dr. Jo Ann Rene Neutrophils/100 WBC (Bld) 51.9 % Normal 43.0-75.0 [facility] Comment on above: Performed By: #### C BC #### [facility] [address] [place] [address] Dr. Jo Ann Rene Platelet mean volume (Bld) [Entitic vol] 9.8 fL Normal 9.5-13.5 [facility] Comment on above: Performed By: #### C BC #### [facility] [address] [place] [address] Dr. Jo Ann Rene PLT 303 103/ul Normal 150-[address] [facility] Comment on above: Performed By: #### C BC #### [facility] [address] [place] [address] Dr. Jo Ann Rene RBC 4.70 106/ul Normal 4.20-5.[address] [facility] Comment on above: Performed By: #### C BC #### [facility] [address] [place] [address] Dr. Jo Ann Rene WBC 9.1 103/ul Normal 4.0-11.0 [facility] Comment on above: Performed By: #### C BC #### [facility] [address] [place] [address] Dr. Jo Ann Rene LIPID PROFILEon 10-23-2022 CHOL-HDL RATIO NORM SEE BELOW Normal [facility] Comment on above: Result Comment: 3.3 - 4.4 LOW RISK 4.4 - 7.1 AVERAGE RISK 7.1 - 11.0 MODERATE RISK >11.0 HIGH RISK Performed By: #### L IPID, BMP #### [facility] [address] [address] [address] Jo Ann Rene Cholesterol [Mass/Vol] 174 mg/dL Normal <=200 [facility] Comment on above: Performed By: #### L IPID, BMP #### [facility] [address] [address] [address] Jo Ann Rene Cholesterol in HDL [Mass/Vol] 57 mg/dL Normal 40-60 [facility] Comment on above: Performed By: #### L IPID, BMP #### [facility] [address] [address] [address] Jo Ann Rene Cholesterol in LDL [Mass/Vol] 109.2 mg/dL Normal [facility] Comment on above: Performed By: #### L IPID, BMP #### [facility] [address] [address] [address] Jo Ann Rene Cholesterol.total/C holesterol in HDL [Mass ratio] 3.1 {ratio} Normal [facility] Comment on above: Performed By: #### L IPID, BMP #### [facility] [address] [address] [address] Jo Ann Rene HDL NORMAL > or = 60 mg/dl - LOW CARDIOVASCULAR RISK <40 mg/dl - HIGH CARDIOVASCULAR RISK Normal [facility] Comment on above: Performed By: #### L IPID, BMP #### [facility] [address] [address] [address] Jo Ann Rene LDL CALC NORMAL SEE BELOW Normal [facility] Comment on above: Result Comment: <100 mg/dl OPTIMAL 100 - 129 mg/dl NEAR OR ABOVE OPTIMAL 130 - 159 mg/dl BORDERLINE HIGH 160 - 189 mg/dl HIGH >190 mg/dl VERY HIGH Performed By: #### L IPID, BMP #### [facility] [address] [address] [address] Jo Ann Rene Triglyceride [Mass/Vol] 39 mg/dL Normal <=150 [facility] Comment on above: Performed By: #### L IPID, BMP #### [facility] [address] [place] [address] Dr. Jo Ann Rene VLDL CALC 7.8 mg/dL Normal [facility] Comment on above: Performed By: #### L IPID, BMP #### [facility] [address] [place] [address] Dr. Jo Ann Rene PROF CHEM 8 (BAS METB)on Anion gap [Moles/Vol] 10.4 mmol/L Normal [facility] Comment on above: Performed By: #### L IPID, BMP #### [facility] [address] [place] [address] Dr. Jo Ann Rene Calcium [Mass/Vol] 9.7 mg/dL Normal 8.5-10.1 [facility] Comment on above: Performed By: #### L IPID, BMP #### [facility] [address] [place] [address] Dr. Jo Ann Rene Chloride [Moles/Vol] 104 mmol/L Normal 98-[address] [facility] Comment on above: Performed By: #### L IPID, BMP #### [facility] [address] [place] [address] Dr. Jo Ann Rene CO2 [Moles/Vol] 31.1 mmol/L Normal 21.0-32.0 [facility] Comment on above: Performed By: #### L IPID, BMP #### [facility] [address] [place] [address] Dr. Jo Ann Rene Creatinine [Mass/Vol] 0.74 mg/dL Normal 0.55-1.[address] [facility] Comment on above: Performed By: #### L IPID, BMP #### [facility] [address] [place] [address] Dr. Jo Ann Rene EGFR-AF BRUNEIAN >60 Normal >=60 [facility] Comment on above: Performed By: #### L IPID, BMP #### [facility] [address] [place] [address] Dr. Jo Ann Rene EGFR-NON AF BRUNEIAN >60 Normal >=60 [facility] Comment on above: Performed By: #### L IPID, BMP #### [facility] [address] [address] [address] Jo Ann Rene Glucose [Mass/Vol] 119 mg/dL Critically high 74-106 [facility] Comment on above: Performed By: #### L IPID, BMP #### [facility] [address] [address] [address] Jo Ann Rene Potassium [Moles/Vol] 4.5 mmol/L Normal 3.5-5.1 [facility] Comment on above: Performed By: #### L IPID, BMP #### [facility] [address] [place] [address] Dr. Jo Ann Rene Sodium [Moles/Vol] 141 mmol/L Normal 136-145 [facility] Comment on above: Performed By: #### L IPID, BMP #### [facility] [address] [address] [address] Jo Ann Rene Urea nitrogen [Mass/Vol] 7.0 mg/dL Normal 7.0-18.0 [facility] Comment on above: Performed By: #### L IPID, BMP #### [facility] [address] [place] [address] Dr. Jo Ann Rene Urea nitrogen/Creatinine [Mass ratio] 9.5 mg/mg Normal [facility] Comment on above: Performed By: #### L IPID, BMP #### [facility] [address] [place] [address] Dr. Jo Ann Rene Vital Signs Date Time Vital Sign Value Performing Clinician Facility 11-02-2023 13:42-0400 Body height 165.[address] [facility] 11-02-2023 13:42-0400 Body mass index (BMI) [Ratio] 22.3 kg/m2 [facility] 11-02-2023 [id number] Body weight 60.[address] [facility] 11-02-2023 13:42-0400 Diastolic blood pressure 89 mm[Hg] [facility] 11-02-2023 13:42-0400 Heart rate 84 /min [facility] 11-02-2023 13:42-0400 Systolic blood pressure 143 mm[Hg] [facility] 01-07-2023 10:45-0400 Body height 165.1 cm Rosana Orourke Other [employer] Other 01-07-2023 10:45-0400 Body mass index (BMI) [Ratio] 21.96 kg/m2 Rosana Orourke Other [employer] Phone Other 01-07-2023 10:45-0400 Body weight 59.88 kg Rosana Orourke Other [employer] Phone Other 01-07-2023 10:45-0400 Diastolic blood pressure 74 mm[Hg] Rosana Orourke Other [employer] Phone Other 01-07-2023 10:45-0400 SaO2% (BldA) [Mass fraction] 97 % Rosana Orourke Other [employer] Phone Other 01-07-2023 10:45-0400 Systolic blood pressure 118 mm[Hg] Rosana Orourke Other Search to Phone Other 10-19-2022 12:30-0400 Body height 165.1 cm Rosana Orourke Other Search [employer] Phone Other 10-19-2022 12:30-0400 Body mass index (BMI) [Ratio] 24.46 kg/m2 Rosana Orourke Other Search to Phone Other 10-19-2022 12:30-0400 Body weight 66.68 kg Rosana Orourke Other Search to Phone Other 10-19-2022 12:30-0400 Diastolic blood pressure 80 mm[Hg] Rosana Orourke Other Search to Phone Other 10-19-2022 12:30-0400 SaO2% (BldA) [Mass fraction] 97 % Rosana Orourke Other Search to Phone Other 10-19-2022 12:30-0400 Systolic blood pressure 132 mm[Hg] Rosana Orourke Other Search to Phone Other Encounters Encounter Date Encounter Type Care Provider Facility Start: 11-11-2023 End: 11-12-2023 ambulatory ROSANA OROURKE [facility] Start: 11-02-2023 Patient encounter status [facility] Start: 11-02-2023 End: 11-02-2023 ambulatory [facility] Work Phone: Start: 11-02-2023 End: 11-02-2023 Encounter for general adult medical examination without abnormal findings [facility] Start: 11-02-2023 End: 11-02-2023 Patient encounter procedure [facility] Work Phone: Start: 02-04-2023 End: 02-04-2023 ambulatory Rosana Orourke Other Search to Phone Other Start: 02-04-2023 Telephone encounter Rosana Orourke [facility] Start: 01-07-2023 End: 01-07-2023 ambulatory Rosana Orourke Other [employer] Phone Other Start: 01-07-2023 Office outpatient vi sit 15 minutes Rosana Orourke [facility] Start: 11-02-2022 End: 11-02-2022 ambulatory Rosana Orourke Other Search to Phone Other Start: 11-02-2022 Telephone encounter Rosana Orourke [facility] Start: 11-01-2022 Encounter for genera l adult medical examination without abnormal findings ROSANA OROURKE [facility] Start: 10-26-2022 End: 10-26-2022 ambulatory Rosana Orourke Other Search to Phone Other Start: 10-26-2022 Telephone encounter Rosana Orourke [facility] Start: 10-23-2022 Telephone encounter Rosana Orourke [facility] Start: 10-23-2022 End: 10-24-2022 ambulatory ROSANA Mackenzie [facility] [employer] Other Start: 10-23-2022 End: 10-24-2022 Encounter for general adult medical examination without abnormal findings ROSANA Mann [facility] Facility:[facility] Start: 10-19-2022 End: 10-19-2022 ambulatory Rosana Orourke Other Search to Phone Other Start: 10-19-2022 Encounter for genera l adult medical examination without abnormal findings Rosana Haven [facility] Start: 10-19-2022 Initial preventive medicine new patient 40-64yrs Rosana Haven [facility] Plan of Treatment Date Care Activity Detail Author Start: 11-02-2023 Patient referral [facility] Work Phone: MG Breast - bilatera l Screening [facility] Patient referral [facility] Work Phone: [facility] Payers Date Payer Category Payer Unknown [id number] 1965 Unknown [id number] 1965 Unknown [id number] 1961 Medicare [id number] Medicare [id number] Social History Date Type Detail Facility Unknown if ever smoked Search to Phone Other Sex Assigned At Sex Assigned At Bir th Search to Phone Other Start: 11-02-2023 Tobacco smoking status NHIS Smoker (finding) [facility] Start: 1965 Sex Assigned At Female F [facility] Hospital Discharge instructions 11-02-2023 Note Date & Type Note Facility 11-02-2023 Hospital Discharg e instructions Ambulatory OrdersReferral to Pain Management Time Frame: 11/02/23, Location: None Selected [facility] Work Phone: Evaluation note 01-07-2023 Note Date & Type Note Facility 01-07-2023 Evaluation note Encounter Date Diagnosis Assessment Notes Dec, Anxiety (ICD-10 - F41.9) Recommended counseling when able. Right now her schedule is difficult. Call if medication does not help. Dec, Primary insomnia (ICD-10 - F51.01) Discussed stressors. Problems with constant worrying with husbands serious medical issues. [employer] Phone Other Evaluation note 10-19-2022 Note Date & [...] agrees to Cologuard. Last was in 2019. Search [employer] Phone Other Evaluation note Note Date & Type Note Facility Evaluation note No Information [employer] Other Evaluation note Note Date & Type Note Facility Evaluation note Diagnosis Onset Date Bruising acute Right lumbar radiculopathy a cute Right sciatic nerve pain acu te Screening mammogram for breast cancer acute Wellness examination acute [facility] Work Phone: History general Narrative [...] tubal 1986 Hospitalization History See Sx Hx Search to Phone Other Summary Purpose Family History No Family [...] and content) DATE CREATED AUTHOR 11/01/2022 [facility] DATE CREATED AUTHOR AUTHOR'S ORGANIZ ATION 11/12/2023 [facility] Care Teams (unrecognized sec tion and content) [...] BE BASED ON THE PRIMARY CLINICAL RECORDS. [employer] provides no warranty or guarantee of the accuracy or completeness of information in this document.
[2024-02-15 09:42] VITALS: BP 135/81; BP 141/80; PULSE 79; PULSE 88; O2SAT 97
[2024-02-15] MEDS: BUPIVACAINE HCL 0.25% PF 25 MG/10 ML VIAL 6 ML INJ (09:47)
--- NOTE | 2024-02-15 10:06 | W.PM.PROCNOT ---
Date of procedure: 02/15/24 Pre-op diagnosis: lumbar spondylosis Post-op diagnosis: same as pre-op Procedure: Bilateral lumbar 4/5, 5/S1 medial branch block Under fluoroscopic guidance Solution injected: 2millilitersMarcaine 0.25% Anesthesia :none Immediate complications none Time out process compliant After informed consent obtained from the patient placed in the Prone proposition . area was prepped and draped in a sterile fashion using Cloraprep .25 gauge spinal needle inserted over each of the above mentioned target areas . Mauldin were directed towards the target under fluoroscopic guidance . after encountering each of the targets , no indication of intravascular intraneuronal or intrathecal needle tip placement. Then 0 .5 to 1 Milliliter was injected at each level. Mauldin removed postoperatively. patient transferred to recovery in stable condition to be discharged home after meeting criteria Anesthesia: Local Surgeon: Leigh Ann Montanez Condition: stable Disposition: PACU
== END 2024-02-15 09:50 | disposition home or self-care (01) ==
LOC: SURGOUT 08:42
PROVIDERS: PCP Family Medicine; Visit Provider Anesthesiology Pain Medicine
DX: M47.816 Spondylosis without myelopathy or radiculopathy, lumbar region (principal)
CPT/HCPCS: 64493; 64494; J0665

== ENCOUNTER 2024-02-17 15:17 | Outpatient (OUT) | payer MEDICARE, SELFPAY ==
--- NOTE | 2024-02-17 15:42 | P.CN_ITS ---
Consult Note: HPI Data of Consult Patient: known to practice within the last 3 years Requesting Physician: Trena Ortega NP Primary Care Provider: Rosana Orourke MD Consult Narrative Narrative: Vida Dee a pleasant 58 year old female presents for evaluation and management of chronic low back pain. Patient has had chronic low back pain secondary to facet arthropathy present greater than 6 months, unresponsive to HEP greater than 6 weeks tylenol baclofen and THC gummies. Pain today 4/10 increasing to 10/10 with standing and walking, as well as twisting. Patient has now completed bilateral L4/5 L5/S1 MBB x2 with >80% improvement immediately following and hours after the procedure. Pain most severe on right side without numbness tingling weakness of BLE. cc:: CC: Trena Ortega NP Review of Systems ROS Status of ROS 10 or more systems reviewed and unremark able except as noted in history and below Musculoskeletal Reports: back pain PFSH PFS Medical History (Updated 12/29/23 @ 14:12 by Trena Ortega NP) Osteoarthritis ?M19.90 - Unspecified osteoarthritis, unspecified site (ICD-10) Surgical History History of tubal ligation ?Z98.51 - Tubal ligation status (ICD-10) History of hysterectomy ?Z90.710 - Acquired absence of both cervix and uterus (ICD-10) Meds Home Medications and Allergies Home Medications ?Medication ?Instructions ?Recorded ?Confirmed ?Type baclofen 10 mg tablet 10 mg PO BID 11/18/23 02/15/24 History cholecalciferol (vitamin D3) 125 125 mcg PO DAILY 11/18/23 02/15/24 History mcg (5,000 unit) tablet (Vitamin D3) diphenhydramine HCl 25 mg capsule 25 mg PO Q8H PRN allergy symptoms 11/18/23 02/01/24 History (Benadryl) loratadine-pseudoephedrine ER 10 1 tab PO DAILY 11/18/23 02/15/24 History mg-240 mg tablet,extended [id number] (Claritin-D 24 Hour) melatonin 10 mg capsule 10 mg PO DAILY 11/18/23 02/15/24 History ascorbate calcium (vitamin C) .Route 02/01/24 History Allergies Allergy/AdvReac Type Severity Reaction Status Date / Time No Known Drug Allergies Allergy Verified 02/15/24 08:50 Exam Constitutional Documenting provider has reviewed patient's vital signs: yes Common normals: no apparent distress, oriented x3, healthy appearing, alert and well nourished General appearance: cooperative HENMT Common normals: normocephalic, hearing grossly normal bilaterally and moist oral mucous membranes Head and scalp: normocephalic Eye Common normals: PERRL Pupil: PERRL Neck & C-Spine Common normals: full ROM General: normal visual inspection Chest Common normals: inspection of chest normal Respiratory Common normals: normal respiratory effort, no retractions and no use of accessory muscles Back & Pelvis Lumbar spine/lower back: ROM limited, pain with ROM and straight leg raise negative bilaterally Sacroiliac joints: SI joints normal Other: bilateral facet loading tenderness from L3-S1 facets no radiculopathy, sensation intact BLE, strength 5/5 in BLE Extremity Common normals: normal to inspection and full ROM Neuro Common normals: oriented x3, CN's II-XII intact bilaterally, moves all extremities, no focal motor deficits, no sensory deficits noted and deep tendon reflexes 2+ bilaterally Sensorium/orientation: alert Motor exam: strength 5/5 throughout and no movement abnormalities noted Psych Common normals: mental status grossly normal, thought process normal, cooperative, affect normal, speech normal and activity/motor behavior normal Speech: normal speech Thought process: normal thought process Results Additional Findings Additional findings: If on a controlled substance or opioids, I have checked an [place] report on this patient and there are no aberrancies noted in the prescribing history.??If on a controlled substance or opioid a drug screen was completed and reviewed within the last year, and if there has not been a drug screen completed we ordered one today to monitor higher risk, state monitored pain medication use. As part of providing excellent, safe, comprehensive care, the following was completed at our patient's visit: 1. A medication reconciliation and review to ensure accurate knowledge of current/active medications, including asking our patients to inform us about any [id number] medications or herbal remedies/nutritional supplements/alternative remedies. 2. A review to specifically ensure our patients have had annual screening for screening for depression, screening for tobacco use, and screening for unhealthy alcohol use. For concerning screenings had a discussion with the patient, provided patient education, and recommended follow-up with primary care provider when appropriate. If patient noted with a risk of falling, they received education on strength, gait, and balance training to prevent future risk of falling. Assessment and Plan Assessment and Plan (1) Lumbar spondylosis: Plan right L4-5 L5-S1 facet medial branch thermal RFA under fluoroscopy continue current medications f/u after RFA complete, can consider left L4-5 L5-S1 RFA if needed
== END 2024-02-17 15:18 | disposition home or self-care (01) ==
LOC: PM 15:17
PROVIDERS: PCP Family Medicine; Visit Provider Nurse Practitioner
DX: M47.816 Spondylosis without myelopathy or radiculopathy, lumbar region (principal)
CPT/HCPCS: G0463

== ENCOUNTER 2024-03-07 08:02 | Day surgery (SDC) | payer MEDICARE, SELFPAY ==
--- OUTSIDE RECORDS SUMMARY | 2024-03-07 08:09 | XMS_ITS | CCD ---
Author Organization [facility] Care Team Providers Care Dyer Helper Name Role Phone Rosana Orourke Unavailable ROSANA OROURKE Admitting Unavailable ROSANA OROURKE Attending Unavailable ROSANA OROURKE Primary Care Unavailable ROSANA OROURKE Consulting Unavailable ROSANA OROURKE Referring Unavailable ROSANA OROURKE Primary Care Unavailable ROSANA OROURKE Referring Unavailable ROSANA OROURKE Primary Care Unavailable Allergies Allergy Classification Reported Allergen(s) Allergy Type Date of Onset Reaction(s) Facility (6 sources) Morphine Drug Allergy Unknown [employer] Other Medications Current Medications Medication Drug Class(es) [...] Anion gap [Moles/Vol] 6 mmol/L Normal 5-15 [facility] Comment on above: Performed By: #### C BCA, BMP #### [facility] ([id number]) [address] [facility] [address] [place] [address] Calcium [Mass/Vol] 9.7 mg/dL Normal 8.5-10.5 [facility] Comment on above: Performed By: #### C BCA, BMP #### [facility] ([id number]) [address], [facility] [address] [place] [address] Chloride [Moles/Vol] 102 mmol/L Normal 98-109 [facility] Comment on above: Performed By: #### C BCA, BMP #### [facility] ([id number]) [address] [facility] [address] [place] [address] CO2 [Moles/Vol] 32 mmol/L Normal 22-32 [facility] Comment on above: Performed By: #### C BCA, BMP #### [facility] ([id number]) [address] [facility] [address] [place] [address] Creatinine [Mass/Vol] 0.63 mg/dL Normal 0.40-1.00 [facility] Comment on above: Result Comment: METH OD TRACEABLE TO IDMS STANDARD Performed By: #### C BCA, BMP #### [facility] ([id number]) [address] [address] [address] [place] [address] eGFR (CKD-EPI) NON-RACE DEPENDENT >90 Normal >59 [facility] Comment on above: Result Comment: Reported eGFR is based on the CKD-EPI 2020 equation that does not use a race coefficient. Performed By: #### C MIGUEL, BMP #### [facility] ([id number]) [address], [address] [place] [address] Glucose [Mass/Vol] 128 mg/dL High 65-99 [facility] Comment on above: Performed By: #### C MIGUEL, BMP #### [facility] ([id number]) [address] [address] [place] [address] Potassium [Moles/Vol] 4.3 mmol/L Normal 3.5-5.0 [facility] Comment on above: Performed By: #### C MIGUEL, BMP #### [facility] ([id number]) [address], [address] [place] [address] Sodium [Moles/Vol] 140 mmol/L Normal 134-146 [facility] Comment on above: Performed By: #### C MIGUEL, BMP #### [facility] ([id number]) [address], [address] [place] [address] Urea nitrogen [Mass/Vol] 9 mg/dL Normal 5-23 [facility] Comment on above: Performed By: #### C MIGUEL, BMP #### [facility] ([id number]) [address] [facility] [address] [place] [address] CBC AND AUTO DIFFon 11-11-19 24 ABSOLUTE BASOPHIL 0.1 X10E9/L Normal 0.0-0.2 [facility] Comment on above: Performed By: #### C BCA, BMP #### [facility] ([id number]) [address] [facility] [address] [place] [address] ABSOLUTE NEUTROPHIL 5.1 X10E9/L Normal 1.5-6.6 [facility] Comment on above: Performed By: #### C MIGUEL, BMP #### [facility] ([id number]) [address], [address] [place] [address] Basophils/100 WBC (Bld) 0.5 % Normal [facility] Comment on above: Performed By: #### C MIGUEL, BMP #### [facility] ([id number]) [address], [address] [place] [address] Eosinophils (Bld) [#/Vol] 0.3 10*3/uL Normal 0.0-0.4 [facility] Comment on above: Performed By: #### C MIGUEL, BMP #### [facility] ([id number]) [address] [address] [place] [address] Eosinophils/100 WBC (Bld) 2.7 % Normal [facility] Comment on above: Performed By: #### C MIGUEL, BMP #### [facility] ([id number]) [address], [address] [place] [address] Erythrocyte distribution width (RBC) [Ratio] 13.7 % Normal 11.5-15.0 [facility] Comment on above: Performed By: #### C MIGUEL, BMP #### [facility] ([id number]) [address] [address] [place] [address] Hematocrit (Bld) [Volume fraction] 40.6 % Normal 35-47 [facility] Comment on above: Performed By: #### C MIGUEL, BMP #### [facility] ([id number]) [address] [address] [place] [address] Hemoglobin (Bld) [Mass/Vol] 13.7 g/dL Normal 11.7-15.5 [facility] Comment on above: Performed By: #### C BCA, BMP #### [facility] ([id number]) [address], [address] [place] [address] Lymphocytes (Bld) [#/Vol] 3.8 10*3/uL High 1.0-3.5 [facility] Comment on above: Performed By: #### C BCA, BMP #### [facility] ([id number]) [address], [address] [place] [address] Lymphocytes/100 WBC (Bld) 37.9 % Normal [facility] Comment on above: Performed By: #### C BCA, BMP #### [facility] ([id number]) [address], [address] [place] [address] MCH (RBC) [Entitic mass] 31.1 pg Normal 27-34 [facility] Comment on above: Performed By: #### C MIGUEL, BMP #### [facility] ([id number]) [address], [address] [place] [address] MCHC (RBC) [Mass/Vol] 33.6 g/dL Normal 32-36 [facility] Comment on above: Performed By: #### C BCA, BMP #### [facility] ([id number]) [address], [address] [place] [address] MCV (RBC) [Entitic vol] 93 fL Normal 80-100 [facility] Comment on above: Performed By: #### C BCA, BMP #### [facility] ([id number]) [address], [address] [place] [address] Monocytes (Bld) [#/Vol] 0.8 10*3/uL Normal 0-0.9 [facility] Comment on above: Performed By: #### C BCA, BMP #### [facility] ([id number]) [address], [address] [place] [address] Monocytes/100 WBC (Bld) 8.0 % Normal [facility] Comment on above: Performed By: #### C BCA, BMP #### [facility] ([id number]) [address], [address] [place] [address] Neutrophils/100 WBC (Bld) 50.9 % Normal [facility] Comment on above: Performed By: #### Irene RIVERA, BMP #### [facility] ([id number]) [address], [facility] [address] [place] [address] Platelet mean volume (Bld) [Entitic vol] 7.9 fL Normal 7-12 [facility] Comment on above: Performed By: #### Irene RIVERA, BMP #### [facility] ([id number]) [address], [facility] [address] [place] [address] Platelets (Bld) [#/Vol] 304 10*3/uL Normal 150-450 [facility] Comment on above: Performed By: #### Irene RIVERA, BMP #### [facility] ([id number]) [address], [facility] [address] [place] [address] RBC COUNT 4.39 X10E12/L Normal 3.80-5.20 [facility] Comment on above: Performed By: #### Irene RIVERA, BMP #### [facility] ([id number]) [address], [address] [address] WBC (Bld) [#/Vol] 10.0 10*3/uL Normal 4.0-11.0 [facility] Comment on above: Performed By: #### Irene RIVERA, BMP #### [facility] ([id number]) [address], [address] [place] [address] MAMM SCREENING BILATERAL W C endband sizer 11-11-2023 MAMM SCREENING BILATERAL W CAD MAMM [...] AM 1 b MAMM 1 YR Normal [facility] CBC AUTO DIFFon 10-23-2022 BASO # 0.0 103/ul Normal 0.0-0.1 [facility] Comment on above: Performed By: #### C BC #### [facility] [address] [place] [address] Dr. Jo Ann Rene Basophils/100 WBC (Bld) 0.4 % Normal 0.2-2.0 [facility] Comment on above: Performed By: #### C BC #### [facility] [address] [place] [address] Dr. Jo Ann Rene EO # 0.4 103/ul Normal 0.0-0.7 [facility] Comment on above: Performed By: #### C BC #### [facility] [address] [place] [address] Dr. Jo Ann Rene Eosinophils/100 WBC (Bld) 4.7 % Normal 0.9-7.0 [facility] Comment on above: Performed By: #### C BC #### [facility] [address] [place] [address] Dr. Jo Ann Rene Erythrocyte distribution width (RBC) [Ratio] 12.8 % Normal 11.0-15.0 [facility] Comment on above: Performed By: #### C BC #### [facility] [address] [place] [address] Dr. Jo Ann Rene Hematocrit (Bld) [Volume fraction] 42.6 % Normal 36.0-48.0 [facility] Comment on above: Performed By: #### C BC #### [facility] [address] [place] [address] Dr. Jo Ann Rene Hemoglobin (Bld) [Mass/Vol] 14.5 g/dL Normal 12.0-16.0 [facility] Comment on above: Performed By: #### C BC #### [facility] [address] [place] [address] Dr. Jo Ann Rene IG # 0.03 10e3/ul Normal 0.00-0.03 [facility] Comment on above: Performed By: #### C BC #### [facility] [address] [place] [address] Dr. Jo Ann Rene IG % 0.3 % Normal 0.0-0.5 [facility] Comment on above: Performed By: #### C BC #### [facility] [address] [place] [address] Dr. Jo Ann Rene LYMPH # 3.1 103/ul Normal 1.2-3.8 [facility] Comment on above: Performed By: #### C BC #### [facility] [address] [place] [address] Dr. Jo Ann Rene Lymphocytes/100 WBC (Bld) 34.1 % Normal 20.5-60.0 [facility] Comment on above: Performed By: #### C BC #### [facility] [address] [place] [address] Dr. Jo Ann Rene MANUAL DIFF REQ NO Normal [facility] Comment on above: Performed By: #### C BC #### [facility] [address] [place] [address] Dr. Jo Ann Rene MCH (RBC) [Entitic mass] 30.9 pg Normal 26.7-34.0 [facility] Comment on above: Performed By: #### C BC #### [facility] [address] [place] [address] Dr. Jo Ann Rene MCHC (RBC) [Mass/Vol] 34.0 g/dL Normal 29.9-35.2 [facility] Comment on above: Performed By: #### C BC #### [facility] [address] [place] [address] Dr. Jo Ann Rene MCV (RBC) [Entitic vol] 90.6 fL Normal 81.0-99.0 [facility] Comment on above: Performed By: #### C BC #### [facility] [address] [place] [address] Dr. Jo Ann Rene MONO # 0.8 103/ul Normal 0.3-0.8 [facility] Comment on above: Performed By: #### C BC #### [facility] [address] [place] [address] Dr. Jo Ann Rene Monocytes/100 WBC (Bld) 8.6 % Normal 1.7-12.0 [facility] Comment on above: Performed By: #### C BC #### [facility] [address] [place] [address] Dr. Jo Ann Rene NEUT # 4.7 103/ul Normal 1.4-6.5 [facility] Comment on above: Performed By: #### C BC #### [facility] [address] [place] [address] Dr. Jo Ann Rene Neutrophils/100 WBC (Bld) 51.9 % Normal 43.0-75.0 [facility] Comment on above: Performed By: #### C BC #### [facility] [address] [place] [address] Dr. Jo Ann Rene Platelet mean volume (Bld) [Entitic vol] 9.8 fL Normal 9.5-13.5 [facility] Comment on above: Performed By: #### C BC #### [facility] [address] [place] [address] Dr. Jo Ann Rene PLT 303 103/ul Normal 150-450 [facility] Comment on above: Performed By: #### C BC #### [facility] [address] [place] [address] Dr. Jo Ann Rene RBC 4.70 106/ul Normal 4.20-5.40 [facility] Comment on above: Performed By: #### C BC #### [facility] [address] [place] [address] Dr. Jo Ann Rene WBC 9.1 103/ul Normal 4.0-11.0 [facility] Comment on above: Performed By: #### C BC #### [facility] [address] [place] [address] Dr. Jo Ann Rene LIPID PROFILEon 10-23-2022 CHOL-HDL RATIO NORM SEE BELOW Normal [facility] Comment on above: Result Comment: 3.3 - 4.4 LOW RISK 4.4 - 7.1 AVERAGE RISK 7.1 - 11.0 MODERATE RISK >11.0 HIGH RISK Performed By: #### L IPID, BMP #### [facility] [address] [address] [address] Jo Ann Rene Cholesterol [Mass/Vol] 174 mg/dL Normal <=200 [facility] Comment on above: Performed By: #### L IPID, BMP #### [facility] [address] [address] [address] Jo Ann Rene Cholesterol in HDL [Mass/Vol] 57 mg/dL Normal 40-60 [facility] Comment on above: Performed By: #### L IPID, BMP #### [facility] [address] [address] [address] Jo Ann Rene Cholesterol in LDL [Mass/Vol] 109.2 mg/dL Normal [facility] Comment on above: Performed By: #### L IPID, BMP #### [facility] [address] [address] [address] Jo Ann Rene Cholesterol.total/C holesterol in HDL [Mass ratio] 3.1 {ratio} Normal [facility] Comment on above: Performed By: #### L IPID, BMP #### [facility] [address] [address] [address] Jo Ann Rene HDL NORMAL > or = 60 mg/dl - LOW CARDIOVASCULAR RISK <40 mg/dl - HIGH CARDIOVASCULAR RISK Normal [facility] Comment on above: Performed By: #### L IPID, BMP #### [facility] [address] [address] [address] Jo Ann Rene LDL CALC NORMAL SEE BELOW Normal [facility] Comment on above: Result Comment: <100 mg/dl OPTIMAL 100 - 129 mg/dl NEAR OR ABOVE OPTIMAL 130 - 159 mg/dl BORDERLINE HIGH 160 - 189 mg/dl HIGH >190 mg/dl VERY HIGH Performed By: #### L IPID, BMP #### [facility] [address] [address] [address] Jo Ann Rene Triglyceride [Mass/Vol] 39 mg/dL Normal <=150 [facility] Comment on above: Performed By: #### L IPID, BMP #### [facility] [address] [place] [address] Dr. Jo Ann Rene VLDL CALC 7.8 mg/dL Normal [facility] Comment on above: Performed By: #### L IPID, BMP #### [facility] [address] [place] [address] Dr. Jo Ann Rene PROF CHEM 8 (BAS METB)on Anion gap [Moles/Vol] 10.4 mmol/L Normal [facility] Comment on above: Performed By: #### L IPID, BMP #### [facility] [address] [place] [address] Dr. Jo Ann Rene Calcium [Mass/Vol] 9.7 mg/dL Normal 8.5-10.1 [facility] Comment on above: Performed By: #### L IPID, BMP #### [facility] [address] [place] [address] Dr. Jo Ann Rene Chloride [Moles/Vol] 104 mmol/L Normal 98-107 [facility] Comment on above: Performed By: #### L IPID, BMP #### [facility] [address] [place] [address] Dr. Jo Ann Rene CO2 [Moles/Vol] 31.1 mmol/L Normal 21.0-32.0 [facility] Comment on above: Performed By: #### L IPID, BMP #### [facility] [address] [place] [address] Dr. Jo Ann Rene Creatinine [Mass/Vol] 0.74 mg/dL Normal 0.55-1.02 [facility] Comment on above: Performed By: #### L IPID, BMP #### [facility] [address] [place] [address] Dr. Jo Ann Rene EGFR-AF KITTITIAN >60 Normal >=60 [facility] Comment on above: Performed By: #### L IPID, BMP #### [facility] [address] [place] [address] Dr. Jo Ann Rene EGFR-NON AF KITTITIAN >60 Normal >=60 [facility] Comment on above: Performed By: #### L IPID, BMP #### [facility] [address] [address] [address] Jo Ann Rene Glucose [Mass/Vol] 119 mg/dL Critically high 74-106 [facility] Comment on above: Performed By: #### L IPID, BMP #### [facility] [address] [address] [address] Jo Ann Rene Potassium [Moles/Vol] 4.5 mmol/L Normal 3.5-5.1 [facility] Comment on above: Performed By: #### L IPID, BMP #### [facility] [address] [place] [address] Dr. Jo Ann Rene Sodium [Moles/Vol] 141 mmol/L Normal 136-145 [facility] Comment on above: Performed By: #### L IPID, BMP #### [facility] [address] [address] [address] Jo Ann Rene Urea nitrogen [Mass/Vol] 7.0 mg/dL Normal 7.0-18.0 [facility] Comment on above: Performed By: #### L IPID, BMP #### [facility] [address] [place] [address] Dr. Jo Ann Rene Urea nitrogen/Creatinine [Mass ratio] 9.5 mg/mg Normal [facility] Comment on above: Performed By: #### L IPID, BMP #### [facility] [address] [place] [address] Dr. Jo Ann Rene Vital Signs Date Time Vital Sign Value Performing Clinician Facility 11-02-2023 13:42-0400 Body height 165.1 cm [facility] 11-02-2023 13:42-0400 Body mass index (BMI) [Ratio] 22.3 kg/m2 [facility] 11-02-2023 [id number] Body weight 60.83 kg [facility] 11-02-2023 13:42-0400 Diastolic blood pressure 89 mm[Hg] [facility] 11-02-2023 13:42-0400 Heart rate 84 /min [facility] 11-02-2023 13:42-0400 Systolic blood pressure 143 mm[Hg] [facility] 01-07-2023 10:45-0400 Body height 165.1 cm Rosana Orourke Other [employer] Other 01-07-2023 10:45-0400 Body mass index (BMI) [Ratio] 21.96 kg/m2 Rosana Orourke Other [employer] Other 01-07-2023 10:45-0400 Body weight 59.88 kg Rosana Orourke Other [employer] Other 01-07-2023 10:45-0400 Diastolic blood pressure 74 mm[Hg] Rosana Orourke Other [employer] Other 01-07-2023 10:45-0400 SaO2% (BldA) [Mass fraction] 97 % Rosana Orourke Other [employer] Other 01-07-2023 10:45-0400 Systolic blood pressure 118 mm[Hg] Rosana Orourke Other [employer] Other 10-19-2022 12:30-0400 Body height 165.1 cm Rosana Orourke Other [employer] Other 10-19-2022 12:30-0400 Body mass index (BMI) [Ratio] 24.46 kg/m2 Rosana Orourke Other [employer] Other 10-19-2022 12:30-0400 Body weight 66.68 kg Rosana Orourke Other [employer] Other 10-19-2022 12:30-0400 Diastolic blood pressure 80 mm[Hg] Rosana Orourke Other [employer] Other 10-19-2022 12:30-0400 SaO2% (BldA) [Mass fraction] 97 % Rosana Orourke Other [employer] Other 10-19-2022 12:30-0400 Systolic blood pressure 132 mm[Hg] Rosana Orourke Other [employer] Other Encounters Encounter Date Encounter Type Care Provider Facility Start: 11-11-2023 End: 11-12-2023 ambulatory ROSANA OROURKE [facility] Start: 11-02-2023 Patient encounter status [facility] Start: 11-02-2023 End: 11-02-2023 ambulatory [facility] Work Phone: Start: 11-02-2023 End: 11-02-2023 Encounter for general adult medical examination without abnormal findings [facility] Start: 11-02-2023 End: 11-02-2023 Patient encounter procedure [facility] Work Phone: Start: 02-04-2023 End: 02-04-2023 ambulatory Rosana Orourke Other [employer] Other Start: 02-04-2023 Telephone encounter Rosana Orourke [facility] Start: 01-07-2023 End: 01-07-2023 ambulatory Rosana Orourke Other [employer] Other Start: 01-07-2023 Office outpatient vi sit 15 minutes Rosana Orourke [facility] Start: 11-02-2022 End: 11-02-2022 ambulatory Rosana Orourke Other [employer] Other Start: 11-02-2022 Telephone encounter Rosana Orourke [facility] Start: 11-01-2022 Encounter for genera l adult medical examination without abnormal findings ROSANA OROURKE [facility] Start: 10-26-2022 End: 10-26-2022 ambulatory Rosana Orourke Other [employer] Other Start: 10-26-2022 Telephone encounter Rosana Orourke [facility] Start: 10-23-2022 Telephone encounter Rosana Orourke [facility] Start: 10-23-2022 End: 10-24-2022 ambulatory ROSANA Mackenzie [facility] [employer] Other Start: 10-23-2022 End: 10-24-2022 Encounter for general adult medical examination without abnormal findings ROSANA Mann [facility] Facility:[facility] Start: 10-19-2022 End: 10-19-2022 ambulatory Rosana Orourke Other [employer] Other Start: 10-19-2022 Encounter for genera l adult medical examination without abnormal findings Rosana Haven [facility] Start: 10-19-2022 Initial preventive medicine new patient 40-64yrs Rosana Haven [facility] Plan of Treatment Date Care Activity Detail Author Start: 11-02-2023 Patient referral [facility] Work Phone: MG Breast - bilatera l Screening [facility] Patient referral [facility] Work Phone: [facility] Payers Date Payer Category Payer Unknown [id number] 1965 Unknown [id number] 1965 Unknown [id number] 1961 Medicare [id number] Medicare [id number] Social History Date Type Detail Facility Unknown if ever smoked [employer] Other Sex Assigned At Sex Assigned At Bir th [employer] Other Start: 11-02-2023 Tobacco smoking status NHIS Smoker (finding) [facility] Start: 1965 Sex Assigned At Female F [facility] Hospital Discharge instructions 11-02-2023 Note Date & Type Note Facility 11-02-2023 Hospital Discharg e instructions Ambulatory OrdersReferral to Pain Management Time Frame: 11/02/23, Location: None [facility] Work Phone: Evaluation note 01-07-2023 Note Date & Type Note Facility 01-07-2023 Evaluation note Encounter Date Diagnosis Assessment Notes Dec, Anxiety (ICD-10 - F41.9) Recommended counseling when able. Right now her schedule is difficult. Call if medication does not help. Dec, Primary insomnia (ICD-10 - F51.01) Discussed stressors. Problems with constant worrying with husbands serious medical issues. [employer] Other Evaluation note 10-19-2022 Note Date & [...] agrees to [employer]. Last was in 2019. [employer] Other Evaluation note Note Date & Type Note Facility Evaluation note No Information [employer] Other Evaluation note Note Date & Type Note Facility Evaluation note Diagnosis Onset Date Bruising acute Right lumbar radiculopathy a cute Right sciatic nerve pain acu te Screening mammogram for breast cancer acute Wellness examination acute [facility] Work Phone: History general Narrative - Reported [...] tubal 1986 Hospitalization History See Sx Hx [employer] Other Summary Purpose Family History No Family [...] DATE CREATED AUTHOR AUTHOR'S ORGANIZ ATION 11/12/2023 [facility] Care Teams (unrecognized sec tion and content) [...] BE BASED ON THE PRIMARY CLINICAL RECORDS. [employer] provides no warranty or guarantee of the accuracy or completeness of information in this document.
[2024-03-07 08:10] VITALS: BP 124/85; PULSE 89; TEMP 36.2; O2SAT 100
[2024-03-07 08:42] VITALS: BP 131/83; BP 137/84; PULSE 88; PULSE 91; O2SAT 98; O2SAT 99
[2024-03-07] MEDS: LIDOCAINE HCL 2% 400 MG/20 ML MDV 8 ML INJ (08:56)
[2024-03-07] MEDS: BUPIVACAINE HCL 0.25% PF 25 MG/10 ML VIAL 4 ML INJ (08:56)
[2024-03-07] MEDS: METHYLPREDNISOLONE ACETATE 40 MG/ML VIAL INJ (08:56)
--- NOTE | 2024-03-07 09:06 | W.PM.PROCNOT ---
Date of procedure: 03/07/24 Pre-op diagnosis: Lumbar spondylosis Post-op diagnosis: same as pre-op Procedure: Right Lumbar 4/5, 5/sacral 1 Radiofrequency ablation Under fluoroscopic guidance Rhizotomy was created using radio frequency ablation at 80?C for 90 seconds 1 to 2 lesions created at each site. Post lesioning injection of 2 mL each of 0.25% Marcaine and 2% lidocaine with Depo-Medrol 40mg. 0.5 to 1 mL injected at each site IV in place no If Intravenous fluids: NS at KVO Anesthesia local 2% lidocaine for Anesthesia Other: local Timeout process compliant After informed consent obtained.Patient brought to the procedure room placed in the prone position skin overlying the area was prepped and draped in a sterile fashion using betadine. 25 gauge needle was used to create a skin wheal over each of the targeted areas utilizing 2% lidocaine. A rhizotomy needle with a 10 mm active tip was inserted over each of the anesthetized areas and directed towards each of the medial branches accomplished under fluoroscopic guidance. after encountering the same we had positive sensory stimulation, negative motor stimulation was noted. lesions were then created. Post lesioning, steroid solution was injected needles removed. Patient was transferred to recovery room in stable condition to be discharged home after meeting criteria. Anesthesia: Local Surgeon: Leigh Ann Montanez Condition: stable
== END 2024-03-07 08:59 | disposition home or self-care (01) ==
LOC: SURGOUT 08:03
PROVIDERS: PCP Family Medicine; Visit Provider Anesthesiology Pain Medicine
DX: M47.816 Spondylosis without myelopathy or radiculopathy, lumbar region (principal)
CPT/HCPCS: 64635; 64636; J0665; J1010

== ENCOUNTER 2024-04-06 14:21 | Outpatient (OUT) | payer MEDICARE, SELFPAY ==
--- NOTE | 2024-04-06 15:29 | PM.CN ---
Consult Note: HPI Data of Consult Patient: known to practice within the last 3 years Requesting Physician: Trena Ortega NP Primary Care Provider: Rosana Orourke MD Consult Narrative Narrative: Vida Dee a pleasant 58 year old female presents for evaluation and management of chronic low back pain. Patient has had chronic low back pain secondary to facet arthropathy present greater than 6 months, unresponsive to HEP greater than 6 weeks tylenol baclofen and THC gummies. Pain today 1/10 increasing to 2/10 with standing and walking, as well as twisting. Patient has now completed right L4/5 L5/S1 facet RFA with 75% improvement ongoing. cc:: CC: Trena Ortega NP Review of Systems ROS Status of ROS 10 or more systems reviewed and unremarkable except as noted in history and below [facility] Medical History (Updated 12/29/23 @ 14:12 by Trena Ortega NP) Osteoarthritis ?M19.90 - Unspecified osteoarthritis, unspecified site (ICD-10) Surgical History History of tubal ligation ?Z98.51 - Tubal ligation status (ICD-10) History of hysterectomy ?Z90.710 - Acquired absence of both cervix and uterus (ICD-10) Meds Home Medications and Allergies Home Medications ?Medication ?Instructions ?Recorded ?Confirmed ?Type baclofen 10 mg tablet 10 mg PO BID 11/18/23 03/07/24 History cholecalciferol (vitamin D3) 125 125 mcg PO DAILY 11/18/23 03/07/24 History mcg (5,000 unit) tablet (Vitamin D3) diphenhydramine HCl 25 mg capsule 25 mg PO Q8H PRN allergy symptoms 11/18/23 03/07/24 History (Benadryl) loratadine-pseudoephedrine ER 10 1 tab PO DAILY 11/18/23 03/07/24 History mg-240 mg tablet,extended [id number] (Claritin-D 24 Hour) melatonin 10 mg capsule 10 mg PO DAILY 11/18/23 03/07/24 History ascorbate calcium (vitamin C) .Route 02/01/24 History Allergies Allergy/AdvReac Type Severity Reaction Status Date / Time No Known Drug Allergies Allergy Verified 03/07/24 08:09 Exam Constitutional Documenting provider has reviewed patient's vital signs: yes Common normals: no apparent distress, oriented x3, healthy appearing, alert and well nourished General appearance: cooperative HENMT Common normals: normocephalic, hearing grossly normal bilaterally and moist oral mucous membranes Head and scalp: normocephalic Eye Common normals: PERRL Pupil: PERRL Neck & C-Spine Common normals: full ROM General: normal visual inspection Chest Common normals: inspection of chest normal Respiratory Common normals: normal respiratory effort, no retractions and no use of accessory muscles Back & Pelvis Lumbar spine/lower back: straight leg raise negative bilaterally; ROM not limited and no pain with ROM Sacroiliac joints: SI joints normal Other: negative facet loading negative dani(patricks), gaenslens, thigh thrust, compression test no radiculopathy, sensation intact BLE, strength 5/5 in BLE Extremity Common normals: normal to inspection and full ROM Neuro Common normals: oriented x3, CN's II-XII intact bilaterally, moves all extremities, no focal motor deficits, no sensory deficits noted and deep tendon reflexes 2+ bilaterally Sensorium/orientation: alert Motor exam: strength 5/5 throughout and no movement abnormalities noted Psych Common normals: mental status grossly normal, thought process normal, cooperative, affect normal, speech normal and activity/motor behavior normal Speech: normal speech Thought process: normal thought process Results Additional Findings Additional findings: If on a controlled substance or opioids, I have checked an [place] report on this patient and there are no aberrancies noted in the prescribing history.??If on a controlled substance or opioid a drug screen was completed and reviewed within the last year, and if there has not been a drug screen completed we ordered one today to monitor higher risk, state monitored pain medication use. As part of providing excellent, safe, comprehensive care, the following was completed at our patient's visit: 1. A medication reconciliation and review to ensure accurate knowledge of current/active medications, including asking our patients to inform us about any [id number] medications or herbal remedies/nutritional supplements/alternative remedies. 2. A review to specifically ensure our patients have had annual screening for screening for depression, screening for tobacco use, and screening for unhealthy alcohol use. For concerning screenings had a discussion with the patient, provided patient education, and recommended follow-up with primary care provider when appropriate. If patient noted with a risk of falling, they received education on strength, gait, and balance training to prevent future risk of falling. Assessment and Plan Assessment and Plan (1) Lumbar spondylosis: Plan continue current medications f/u as needed
== END 2024-04-06 14:22 | disposition home or self-care (01) ==
LOC: PM 14:22
PROVIDERS: PCP Family Medicine; Visit Provider Nurse Practitioner
DX: M47.816 Spondylosis without myelopathy or radiculopathy, lumbar region (principal)
CPT/HCPCS: G0463